=== PATIENT | female | born 1945 | race Caucasian/White ===

== ENCOUNTER 2023-12-17 09:47 | Outpatient (REF) | payer MEDICARE, SELFPAY ==
[2023-12-17 11:21] LABS: TSH reflex Free T4 0.64 uIU/mL (0.32-4.0)
[2023-12-17 11:32] LABS: Anion Gap 15 (12-20); Blood Urea Nitrogen 32 mg/dL (9-16); Carbon Dioxide 24 mmol/L (22-29); Chloride 109 mmol/L (96-108); Estimated Glomerular Filt Rate 41; Glucose Random 117 mg/dL (60-115); Magnesium 1.2 mg/dL (1.6-2.6); Potassium 4.9 mmol/L (3.3-5.1); Sodium 143 mmol/L (135-145)
== END 2023-12-17 09:48 | disposition home or self-care (01) ==
LOC: HO.LAB 09:47
PROVIDERS: PCP Internal Medicine; Visit Provider Internal Medicine
DX: E03.9 Hypothyroidism, unspecified (principal); E83.42 Hypomagnesemia; E87.5 Hyperkalemia; I48.91 Unspecified atrial fibrillation; N17.9 Acute kidney failure, unspecified
CPT/HCPCS: 36415; 80048; 83735; 84443

== ENCOUNTER 2024-01-05 15:24 | Outpatient (REF) | payer MEDICARE, SELFPAY ==
[2024-01-05 18:20] LABS: Anion Gap 15 (12-20); Blood Urea Nitrogen 43 mg/dL (9-16); Calcium 9.6 mg/dL (8.4-10.2); Carbon Dioxide 24 mmol/L (22-29); Chloride 106 mmol/L (96-108); Estimated Glomerular Filt Rate 29; Glucose Random 113 mg/dL (60-115); Magnesium 2.1 mg/dL (1.6-2.6); Potassium 5.5 mmol/L (3.3-5.1); Sodium 139 mmol/L (135-145)
== END 2024-01-05 15:25 | disposition home or self-care (01) ==
LOC: HO.LAB 15:24
PROVIDERS: PCP Internal Medicine; Visit Provider Internal Medicine
DX: E11.9 Type 2 diabetes mellitus without complications (principal); E83.42 Hypomagnesemia; I10 Essential (primary) hypertension; I48.91 Unspecified atrial fibrillation; N18.30 Chronic kidney disease, stage 3 unspecified
CPT/HCPCS: 36415; 80048; 83735

== ENCOUNTER 2024-01-30 08:27 | Outpatient (REF) | payer MEDICARE, SELFPAY ==
[2024-01-30 09:35] LABS: Anion Gap 14 (12-20); Blood Urea Nitrogen 47 mg/dL (9-16); Calcium 9.8 mg/dL (8.4-10.2); Carbon Dioxide 27 mmol/L (22-29); Chloride 102 mmol/L (96-108); Estimated Glomerular Filt Rate 23; Glucose Random 115 mg/dL (60-115); Magnesium 2.4 mg/dL (1.6-2.6); Potassium 4.7 mmol/L (3.3-5.1); Sodium 138 mmol/L (135-145)
--- OUTSIDE RECORDS SUMMARY | 2024-02-01 12:58 | XMS_ITS ---
[facility] Address [address] [facility] [place] [address] Care Team Providers Care Scrap Piler Name Role Phone Tracey Crouch MD Primary Care Provider Unava ilable Black, Stephanie Unavailable [phone] Allergies Allergen (clinical drug ingredient) Drug/Non Drug Allergy documented on EMR Reaction Allergy Type Onset Date Status ampicillin Ampicillin Unknown Drug Allergy Activ e ibuprofen Ibuprofen Unknown Drug Allergy Active REASON FOR VISIT Foot pain, At Risk Footcare, Ingrown Nail Medications Medication SIG (Take, Route, Frequency, Duration) Notes Start Date End Date Status glipiZIDE 5 MG 1 tablet 30 minutes before breakfast Orally Once a day for 30 day(s) Not-Taking metFORMIN HCl 500 MG 1 tablet with a kisha l Orally Once a day for 30 day(s) Not-Taking Ciclopirox Olamine 0.77% external Apply to effected areas twice a day for 30 days 08/09/2019 Not-Taking MSM Not-Taking Meloxicam 15 MG 1 tablet Orally Once a day for 30 day(s) Not-Taking Ciclopirox Olamine 0.77 % 1 application Externally Twice a day for 30 days Not-Taking Extra Depth Orthopedic Shoes (1 Pair) with Customized Heat Molded Multidensity Innersoles (3 Pair) as directed Dx: NIDDM/Polyneuropathy (E11.42), Hammertoe Foot Deformity (M20.41,M20.42), Preulcerative Skin Lesion(s) (L85.1 02/04/2020 Not-Taking Extra Depth Orthopedic Shoes (1 Pair) with Customized Heat Molded Multidensity Innersoles (3 Pair) as directed Dx: NIDDM/Polyneuropathy (E11.42), Hammertoe Foot Deformity (M20.41,M20.42), Preulcerative Skin Lesion(s) (L85.1 03/22/2022 Not-Taking Gabapentin 800 MG 1 tablet Orally Once a day for 30 day(s) Not-Taking Diclofenac Sodium No t-Taking Fish Oil 1200 MG Orally Act jacob Multivitamin Active Calcium + D Active Simvastatin 20 MG 1 tablet in the even ing Orally Once a day for 30 day(s) Active Omeprazole 20 MG 1 capsule 30 minutes before morning meal Orally Once a day for 30 day(s) Active Xarelto Active Magnesium Active Pregabalin 3X DAY Active Lisinopril 10 MG 1 tablet Orally Once a day for 30 day(s) Active Levothyroxine Sodium 150 MCG 1 tablet in the morning on an empty stomach Orally Once a day for 30 day(s) Active Social History Tobacco Use: Social History Observation Description Date Details (start date - stop date) Never Smoker NA - NA Tobacco Use/Smoking Question Answer Notes Are you a: nonsmoker Additional Findings: Tobacco Non-User Current no n-smoker Alcohol Screen Question Answer Notes Did you have a drink contain ing alcohol in the past year? Yes How often did you have a dri nk containing alcohol in the past year? Monthly or less (1 point) Points 1 Interpretation Negative Tobacco use other than smoking: Question Answer Notes Are you an other tobacco user? No Vital Signs Height 5 ft 6 in in 07/04/2023 Weight 225 lbs 07/04/2023 BMI 36.31 kg/m2 07/04/2023 Procedures Procedure Date Ordered Date Performed Result Body Sit e 10720-Nlstumrw Plate 07/04/2023 N/A 31489-CHTE SKIN LESIONS, 2 TO 4 07/04/2023 N/A [id number] DYSTROPHIC NAILS ANY # 07/04/2023 N/A Encounters Encounter Location Date Provider Diagnosis [facility] [address] [place] [address] 07/04/2023 Stephanie Black Pain in right foot M79.671 ; Neuritis of right foot G57.91 ; Type 2 diabetes mellitus with diabetic polyneuropathy E11.42 ; Hypertrophy of bone of left foot M89.372 ; Pain in left foot M79.672 ; Osteoarthritis of left ankle and foot M19.072 and Ingrown nail L60.0 Assessments Encounter Date Diagnosis (ICD Code) Assessment Notes Treatment Notes Treatment Clinical Notes Section Notes 07/04/2023 Pain in right foot (ICD-10 - M79.671) 07/04/2023 Neuritis of right foot (ICD-10 - G57.91) 07/04/2023 Type 2 diabetes mellitus with diabetic polyneuropathy (ICD-10 - E11.42) 07/04/2023 Hypertrophy of bone of left foot (ICD-10 - M89.372) 07/04/2023 Pain in left foot (ICD-10 - M79.672) 07/04/2023 Osteoarthritis of left ankle and foot (ICD-10 - M19.072) 07/04/2023 Ingrown nail (ICD-10 - L60.0) Plan Of Treatment Pending Test Test Name Order Date 27080-Xevhdrka Plate 07/04/2023 45664-EVBT SKIN LESIONS, 2 TO 4 07/04/19 24 R0039-[id number] DYSTROPHIC NAILS ANY # Next Appt Details Follow Up: 2 Weeks,prn, Reas on: Provider Name:Stephanie Chapin , 04/19/2024 08:15:00 AM, [address] [facility], [place], [address], Procedure Notes * Category Sub-Category Detail Notes Nail Avulsion Procedure A fine sterile e levator was placed between the eponychium, nail fold, and nail plate to separate the structures. A sterile nail splitter, and/or sterile 316 blade, was then used to longitudinally section the nail along its entire length through the eponychium to the area under the nail fold. The offending portion of nail was from the nail bed with a rolling action and then removed with a hemostat. No underlying bone was identified. There was minimal bleeding as hemostasis was achieved through the temporary use of either a digital tourniquet or the aforementioned local with epinephrine. A bacitracin sterile dressing was applied. Local wound aftercare instructions were discussed and dispensed. The patient was informed of both conservative and future surgical procedures to prevent recurrence. Tylenol or Motrin was recommended for pain or discomfort (03152) , Pt DEFERS matricectomy Anesthesia was deferred - NEURO KARL: patient has medically documented neuropathic condition affecting sensation Location Lateral nail border , T5 Keratoma Treatment Parring or Cutting o f Benign Hyperkeratotic Lesion(s) 83421 (2-4 Lesions) - The Benign hyperkeratotic lesions, as described above were pared, and/or cut utilizing a sterile #15 blade, tissue nippers, and/or dremel Nail Reduction Nail Reduction Trimming of dyst rophic nails performed to reduce/remove overall nail length and girth, by manual and electrical means with use of a nail nipper and/or dremel, to more viable healthy nail plate or bed tissue 6-10 (G0127) Progress Notes * Krystal CHASE ADOB: [birth year] (78 yo F)Acc No.[id number]:07/04/2023 Progress Note Patient:?Krystal Chase A Provider:?Stephanie Chapin DPM :1945???Age:78 Y???Sex:Female D ate:07/04/2023 Address:[address], [facility], [facility] Pcp:Tracey Crouch MD Subjective: * Chief Complaints: * ???Foot painAt Risk Footcare Ingrown Nail * HPI: ???Foot Pain:?Nature:?burning , radiating , shooting , tingling.?Location:?, B/L.?Duration:?several months.?Onset:?unknown.?Course:?improved , at 80 %.?Aggrevated:?any pressure , Worse at night when in bed.?Treatments:?rest/alter normal daily activity , medication ( biofreeze ).?At Risk footcare:?Pt States Last PCP Visit:?Date?06/20/2023 * ROS:?General/Constitutional:?Nausea?denies.?Vomiting?denies.?Hunger Thirst?denies.?Loss appetite?denies.?Chills?denies.?Fatigue?denies.?Fever?denies.?Night Sweats?denies.?Unexplained weight loss?denies.?Unexplained weight gain?denies.?HEENTM:?Dentures?denies.?Dizziness?denies.?Glasses/contacts?admits.?Retinopathy?de nies.?Blurred/double vision?denies.?TMJ?denies.?Discharge/drainage?denies.?Implants?denies.?Sore throat?denies.?Dental implants?denies.?Hard of hearing ?denies.?Difficulty chewing/swallowing/speaking?denies.?Nose bleeds?denies.?Sore mouth?denies.?Respiratory:?On Oxygen?denies.?Pneumonia/pleurisy?denies.?Bronchitis?denies.?Emphysema?denies.?C oughing?denies.?Cough blood?denies.?Shortness of breath?denies.?Wheezing?denies.?Cardiovascular:?Pacemaker?denies.?MVP?denies.?WPW?denies.?CHF?denies.?Heart attack?denies.?Septal defect?denies.?Rapid beat?denies.?Chest pain ?denies.?Atrial Fib.?denies.?Murmur/Palpitations?denies.?Gastrointestinal:?Hemorrhoids?admits.?Stomach/Abdominal pain?denies.?Dark blood stool?denies.?Irritable bowel ?denies.?Constipation?denies.?Diarrhea?denies.?Hematology:?Swelling?denies.?Clots?denies.?Varicose Veins?denies.?Bruising?denies.?Bleeding problem?denies.?Genitourinary:?Blood urine?denies.?Frequent/Painfu/urination/bladder control?denies.?Kidney stones?denies.?Infection (UTI)?denies.?Nephropathy?denies.?sex trans dis (STD)?denies.?Prostate?denies.?Musculoskeletal:?Hammertoes?denies.?Bunions?denies.?Back Pain?admits.?Muscle Cramps/ Resting?denies.?Muscle cramps / walking?denies.?Generalized aches and pains?admits.?Weakness?denies.?Integ.:?Ortega?denies.?Scars?admits.?Corns/calluses?admits.?Ingrown nails?denies.?Painful nails?denies.?Open Sores?denies.?Rashes?denies.?Neurologic:?Difficulty sleeping?denies.?Brain disorder?denies.?Numbness?denies.?Balance trouble?denies.?Confusion?denies.?Fainting/blackouts?denies.?Tingling?denies.?Tr emors?denies.? * Medical History:? * Surgical History:?hysterecto my 08/14/13right knee replacement 09/16/16left knee replacement 11/18/16prolapse bladder * Hospitalization/Major Diagno stic Procedure:?Denies Past Hospitalization * Family History:?Mother: dece ased, foot problems, diagnosed with Other specified conditions influencing health status.?Father: .?Spouse: diagnosed with Unspecified heart disease.? * Social History:?Tobacco Use:?Tobacco Use/Smoking?Are you a:?nonsmoker ?Additional Findings: Tobacco Non-User?Current non-smoker ?Tobacco use other than smoking?Are you an other tobacco user??No ???Drugs/Alcohol:?Drugs?Have you used drugs other than those for medical reasons in the past 12 months??No ?Alcohol Screen?Did you have a drink containing alcohol in the past year??Yes ?How often did you have a drink containing alcohol in the past year??Monthly or less (1 point) ?Points?1 ?Interpretation?Negative ???Miscellaneous:?Caffeine: yes, frequency:, 2-3 cups per day. ?Children: yes. ?no Exercise. ?Marital status: . 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 * Medications:?TakingMagnesium Pregabalin , Notes: 3X DAYXarelto Lisinopril 10 MG Tablet 1 tablet Orally Once a dayLevothyroxine Sodium 150 MCG Tablet 1 tablet in the morning on an empty stomach Orally Once a daySimvastatin 20 MG Tablet 1 tablet in the evening Orally Once a dayOmeprazole 20 MG Capsule Delayed Release 1 capsule 30 minutes before morning meal Orally Once a dayMultivitamin Calcium + D Fish Oil 1200 MG Capsule Orally Taking Magnesium Taking Pregabalin , Notes: 3X DAYTaking Xarelto Taking Lisinopril 10 MG Tablet 1 tablet Orally Once a dayTaking Levothyroxine Sodium 150 MCG Tablet 1 tablet in the morning on an empty stomach Orally Once a dayTaking Simvastatin 20 MG Tablet 1 tablet in the evening Orally Once a dayTaking Omeprazole 20 MG Capsule Delayed Release 1 capsule 30 minutes before morning meal Orally Once a dayTaking Multivitamin Taking Calcium + D Taking Fish Oil 1200 MG Capsule Orally Not-Taking/PRNCiclopirox Olamine 0.77 % Cream 1 application Externally Twice a dayExtra Depth Orthopedic Shoes (1 Pair) with Customized Heat Molded Multidensity Innersoles (3 Pair) as directed Dx: NIDDM/Polyneuropathy (E11.42), Hammertoe Foot Deformity (M20.41,M20.42), Preulcerative Skin Lesion(s) (L85.1Extra Depth Orthopedic Shoes (1 Pair) with Customized Heat Molded Multidensity Innersoles (3 Pair) as directed Dx: NIDDM/Polyneuropathy (E11.42), Hammertoe Foot Deformity (M20.41,M20.42), Preulcerative Skin Lesion(s) (L85.1Gabapentin 800 MG Tablet 1 tablet Orally Once a dayDiclofenac Sodium Meloxicam 15 MG Tablet 1 tablet Orally Once a dayCiclopirox Olamine 0.77% Cream external Apply to effected areas twice a dayMSM glipiZIDE 5 MG Tablet 1 tablet 30 minutes before breakfast Orally Once a daymetFORMIN HCl 500 MG Tablet 1 tablet with a meal Orally Once a dayMedication List reviewed and reconciled with the patientNot-Taking/PRN Ciclopirox Olamine 0.77 % Cream 1 application Externally Twice a dayNot-Taking/PRN Extra Depth Orthopedic Shoes (1 Pair) with Customized Heat Molded Multidensity Innersoles (3 Pair) as directed Dx: NIDDM/Polyneuropathy (E11.42), Hammertoe Foot Deformity (M20.41,M20.42), Preulcerative Skin Lesion(s) (L85.1Not-Taking/PRN Extra Depth Orthopedic Shoes (1 Pair) with Customized Heat Molded Multidensity Innersoles (3 Pair) as directed Dx: NIDDM/Polyneuropathy (E11.42), Hammertoe Foot Deformity (M20.41,M20.42), Preulcerative Skin Lesion(s) (L85.1Not-Taking/PRN Gabapentin 800 MG Tablet 1 tablet Orally Once a dayNot-Taking/PRN Diclofenac Sodium Not-Taking/PRN Meloxicam 15 MG Tablet 1 tablet Orally Once a dayNot-Taking/PRN Ciclopirox Olamine 0.77% Cream external Apply to effected areas twice a dayNot-Taking/PRN MSM Not-Taking/PRN glipiZIDE 5 MG Tablet 1 tablet 30 minutes before breakfast Orally Once a dayNot-Taking/PRN metFORMIN HCl 500 MG Tablet 1 tablet with a meal Orally Once a dayMedication List reviewed and reconciled with the patient * Allergies:?AmpicillinIbuprof enyes[Allergies Verified] Objective: * Vitals:?Ht: 5 ft 6 in, Wt: 2 25, BMI: 36.31, Shoe size: 12, BS: 107, Ht-cm: 167.64 cm, Wt-k.06 kg. * ???Past Orders: ???Lab:HEMOGLOBIN A1C (GLYCO HEMOGLOBIN) (Order Date - 12/15/2022) (Collection Date - 12/15/2022) ? Value Reference Range ?HEMOGLOBIN A1C (HH) 6.3 * Examination: ???Neurological: ?SENSORY:?exam demonstrates. reduced vibration lower extremity, reduced sharp/dull pin prick discrimination , 5.07 monofilament test performed at plantar aspects of 5 varied sites per foot shows sensation absent, B/L, Pt relates decreased anesthesia, burning , tingling, burning, anesthesia , especially in the evening b/l at 80 percent less.?TINEL'S COMPRESSION:?Positive , Medial dorsal cutaneous nerve distribution , Intermediate dorsal cutaneous nerve distribution , Right.?Ophthalmology Referral: ?DIABETES EYE EXAM?Dermatologic: ?SKIN FINDINGS:?Skin exam reveals keratotic lesion(s) located at, SUB MTH (s), 5, Right Heel(s), B/L,?.?Ingrown Nail: ?INSPECTION:?Reveals nail incurvation, pain on palpation, groove hypertrophy , groove ischemia , Lateral nail border , T5.?Vascular: ?DP PULSES:?2/4, B/L.?PT PULSES:?2/4, B/L ,.?Nails: ?NAILS are:?Elongated, overgrown, dystrophic, , 1-5 Left foot , 2-5 Right foot.?Orthopedic: ?FOOT MORPHOLOGY:?exostosis , dorsal , midfoot left with POP , approximately 80_% LESS.? Assessment: * Assessment: 1.?Pain in right foot - M79. 671?2.?Neuritis of right foot - G57.91 (Primary), Acute problem, Stable (1=3)?3.?Type 2 diabetes mellitus with diabetic polyneuropathy - E11.42 4.?Hypertrophy of bone of left foot - M89.372?5.?Pain in left foot - M79.672?6.?Osteoarthritis of left ankle and foot - M19.072?7.?Ingrown nail - L60.0? Plan: * Treatment: 2.?Ingrown nail?Procedure: 67915-Gjflcgae Plate * Procedures:?Keratoma Treatment:?Parring or Cutting of Benign Hyperkeratotic Lesion(s)?47946 (2-4 Lesions) - The Benign hyperkeratotic lesions, as described above were pared, and/or cut utilizing a sterile #15 blade, tissue nippers, and/or dremel.?Nail Avulsion:?Location?Lateral nail border , T5.?Anesthesia?was deferred - NEUROPATHY: patient has medically documented neuropathic condition affecting sensation.?Procedure?A fine sterile elevator was placed between the eponychium, nail fold, and nail plate to separate the structures. A sterile nail splitter, and/or sterile 316 blade, was then used to longitudinally section the nail along its entire length through the eponychium to the area under the nail fold. The offending portion of nail was from the nail bed with a rolling action and then removed with a hemostat. No underlying bone was identified. There was minimal bleeding as hemostasis was achieved through the temporary use of either a digital tourniquet or the aforementioned local with epinephrine. A bacitracin sterile dressing was applied. Local wound aftercare instructions were discussed and dispensed. The patient was informed of both conservative and future surgical procedures to prevent recurrence. Tylenol or Motrin was recommended for pain or discomfort (72981) , Pt DEFERS matricectomy.?Nail Reduction:?Nail Reduction?Trimming of dystrophic nails performed to reduce/remove overall nail length and girth, by manual and electrical means with use of a nail nipper and/or dremel, to more viable healthy nail plate or bed tissue 6-10 (G0127).? * Procedure Codes:?39734 Avuls ion Plate, Modifiers: T5 G0127 TRIMMING DYSTROPHIC NAILS ANY #, Modifiers: XS 68104 TRIM SKIN LESIONS, 2 TO 4, Modifiers: XS * Preventive Medicine:? ??Counseling:?Discussion:?-13: Office or other outpatient visit for the evaluation and management of an established patient, which required a medically appropriate history and/or examination and LOW level of DECISION MAKING for: 1 STABLE ACUTE UNCOMPLICATED PROBLEM, 2 OR MORE MINOR PROBLEMS, OR 1 STABLE CHRONIC PROBLEM, THAT POSE(S) A LOW RISK FOR MORBIDITY/MORTALITY. The visit on the day of the encounter encompassed interpreting the data and educating the patient as to the nature of their condition, treatment options available according to their individual PMH, meds, allergies, and overall health/living conditions, as well as any potential risks or complications that may occur from a failure to adhere to, and participate in, the recommended course of therapy. The discussion included a complete verbal, and/or written explanation of the examination results, any x-rays taken, the proposed diagnosis, and outline of the treatment plan. A schedule for future care needs was also explained. The patient verbalized an understanding of the instructions at this time and agreed to be an active participant in their treatment. If the patient should think of any questions or concerns after the visit, I have encouraged the patient to call the office.?Neuritis/Neuropathy:?Discussed other tx options for the patients condition, Discussed Neurontin, Recommened Alpha Lipoic Acid 600mg Daily, nPty defers on any oral medication. given recent successful results to treatment, the patient wishes to continue with the present plan for their condition.? * Follow Up:?2 Weeks,prn * Images: * Sign off status: Completed true * Provider:?Stephanie Chaipn DPM Date:?2023 Generated for Farhan gallego/Jacki/Jake on:?02/01/2024 12:58 PM EST History and Physical Notes * HPI (History of Present Illness) Category Sub-Category Detail Notes Category Not es At Risk footcare Pt States Last PCP Visit: Date: 4 Foot Pain Nature: burning , radiat ing , shooting , tingling Location: , B/L Duration: several months Onset: unknown Course: improved , at 80 % Aggravated: any pressure , Worse at night when in bed Treatments: rest/alter normal da seun activity , medication ( biofreeze ) Examination Category Sub-Category Detail Notes Category Not es Ingrown Nail INSPECTION: Reveals nail inc urvation, pain on palpation, groove hypertrophy , groove ischemia , Lateral nail border , T5 Neurological SENSORY: exam demonstrate s. reduced vibration lower extremity, reduced sharp/dull pin prick discrimination , 5.07 monofilament test performed at plantar aspects of 5 varied sites per foot shows sensation absent, B/L, Pt relates decreased anesthesia, burning , tingling, burning, anesthesia , especially in the evening b/l at 80 percent less BABINSKI REFLEX: TINEL'S COMPRESSION: Positive , Medial d orsal cutaneous nerve distribution , Intermediate dorsal cutaneous nerve distribution , Right DEEP TENDON REFLEXES: Dermatologic SKIN FINDINGS: Skin exam reveal s keratotic lesion(s) located at, SUB MTH (s), 5, Right Heel(s), B/L, Orthopedic FOOT MORPHOLOGY: exostosis , gabriel eros , midfoot left with POP , approximately 80_% LESS Ophthalmology Referral DIABETES EYE EXAM Diabetic Retinopa thy Screening:: Yes Findings of Diabetic Eye Exam:: no retin opathy Vascular DP PULSES(B): 2/4, B/L PT PULSES(B): 2/4, B/L , Nails NAILS are: Elongated, overg rown, dystrophic, , 1-5 Left foot , 2-5 Right foot
--- OUTSIDE RECORDS SUMMARY | 2024-02-01 12:58 | XMS_ITS ---
[facility] Address [address] [place] [address] Care Team Providers Care Interior Design Director Name Role Phone Tracey Crouch MD Primary Care Provider Unava ilable Black, Stephanie Unavailable [phone] Allergies Allergen (clinical drug ingredient) Drug/Non Drug Allergy documented on EMR Reaction Allergy Type Onset Date Status ampicillin Ampicillin Unknown Drug Allergy Activ e ibuprofen Ibuprofen Unknown Drug Allergy Active REASON FOR VISIT Foot pain, At Risk Footcare, Toe Irritation Medications Medication SIG (Take, Route, Frequency, Duration) Notes Start Date End Date Status Extra Depth Orthopedic Shoes (1 Pair) with Customized Heat Molded Multidensity Innersoles (3 Pair) as directed Dx: NIDDM/Polyneuropathy (E11.42), Hammertoe Foot Deformity (M20.41,M20.42), Preulcerative Skin Lesion(s) (L85.1 03/22/2022 Not-Taking Gabapentin 800 MG 1 tablet Orally Once a day for 30 day(s) Not-Taking Diclofenac Sodium No t-Taking Meloxicam 15 MG 1 tablet Orally Once a day for 30 day(s) Not-Taking Extra Depth Orthopedic Shoes (1 Pair) with Customized Heat Molded Multidensity Innersoles (3 Pair) as directed Dx: NIDDM/Polyneuropathy (E11.42), Hammertoe Foot Deformity (M20.41,M20.42), Preulcerative Skin Lesion(s) (L85.1 02/04/2020 Not-Taking Extra Depth Orthopedic Shoes (1 Pair) with Customized Heat Molded Multidensity Innersoles (3 Pair) as directed Dx: NIDDM/Polyneuropathy (E11.42), Hammertoe Foot Deformity (M20.41,M20.42), Preulcerative Skin Lesion(s) (L85.1 10/03/2023 Active Simvastatin 20 MG 1 tablet in the even ing Orally Once a day for 30 day(s) Not-Taking Multivitamin Not-Nacho ing Fish Oil 1200 MG Orally Not -Taking Ciclopirox Olamine 0.77 % 1 application Externally Twice a day for 30 days Not-Taking Losartan Potassium 25 MG as directed Ora l for 30 days Active Magnesium Not-Taking Levothyroxine Sodium 137 MCG 1 tablet in the morning on an empty stomach Orally Once a day for 30 days Active Omeprazole 20 MG 1 capsule 30 minutes before morning meal Orally Once a day for 30 day(s) Active Calcium + D Active Lisinopril 10 MG 1 tablet Orally Once a day for 30 day(s) Active metFORMIN HCl 500 MG 1 tablet with a kisha l Orally Once a day for 30 day(s) Not-Taking Pregabalin 3X DAY Active Xarelto Active glipiZIDE 5 MG 1 tablet 30 minutes before breakfast Orally Once a day for 30 day(s) Not-Taking Ciclopirox Olamine 0.77% external Apply to effected areas twice a day for 30 days 08/09/2019 Not-Taking MSM Not-Taking Social History Tobacco Use: Social History Observation [...] Signs Height 5 ft 6 in in 10/03/2023 Weight 217 lbs 10/03/2023 BMI 35.02 kg/m2 10/03/2023 Procedures Procedure Date Ordered Date Performed Result Body Sit e 16329-FUVE SKIN LESIONS, 2 TO 4 10/03/2023 N/A [id number] DYSTROPHIC NAILS ANY # 10/03/2023 N/A Encounters Encounter Location Date Provider [facility] [address] [place] [address] 10/03/2023 Stephanie Black Neuritis of right fo ot G57.91 ; Other hammer toe(s) (acquired), right foot M20.41 ; Pain in right foot M79.671 ; Hypertrophy of bone of left foot M89.372 ; Pain in left foot M79.672 ; Osteoarthritis of left ankle and foot M19.072 ; Other hammer toe(s) (acquired), left foot M20.42 and Type 2 diabetes mellitus with diabetic polyneuropathy E11.42 Assessments Encounter Date Diagnosis (ICD Code) Assessment Notes Treatment Notes Treatment Clinical Notes Section Notes 10/03/2023 Neuritis of right foot (ICD-10 - G57.91) 10/03/2023 Other hammer toe(s) (acquired), right foot (ICD-10 - M20.41) Patient Educated with: DIABETIC FOOT CARE INSTRUCTIONS. pdf (DIABETIC FOOT CARE INSTRUCTIONS. pdf) 10/03/2023 Pain in right foot (ICD-10 - M79.671) 10/03/2023 Hypertrophy of bone of left foot (ICD-10 - M89.372) 10/03/2023 Pain in left foot (ICD-10 - M79.672) 10/03/2023 Osteoarthritis of left ankle and foot (ICD-10 - M19.072) 10/03/2023 Other hammer toe(s) (acquired), left foot (ICD-10 - M20.42) 10/03/2023 Type 2 diabetes mellitus with diabetic polyneuropathy (ICD-10 - E11.42) Plan Of Treatment Medication Medication Name Sig Start Date Stop Date Notes Extra Depth Orthopedic Shoes (1 Pair) with Customized Heat Molded Multidensity Innersoles (3 Pair) as directed Dx: NIDDM/Polyneuropathy (E11.42), Hammertoe Foot Deformity (M20.41,M20.42), Preulcerative Skin Lesion(s) (L85.1 10/03/2023 Treatment Notes Assessment Notes Other hammer toe(s) (acquired), right fo ot Patient Educated with: DIABETIC FOOT CARE INSTRUCTIONS.pdf (DIABETIC FOOT CARE INSTRUCTIONS.pdf) Pending Test Test Name Order Date 79857-XVVB SKIN LESIONS, 2 TO 4 10/03/19 24 [id number] DYSTROPHIC NAILS ANY # Next Appt Details Follow Up: 3 Months, Reason: Provider Name:Stephanie Chapin , 04/19/2024 08:15:00 AM, [address] [place], [address], Procedure Notes * Category Sub-Category Detail Notes Keratoma Treatment Parring or Cutting o f Benign Hyperkeratotic Lesion(s) 71262 (2-4 Lesions) - The Benign hyperkeratotic lesions, [...] Krystal CHASE ADOB: [birth year] (78 yo F)Acc No.[id number]:10/03/2023 Progress Note Patient:?Krystal Chase Provider:?Stephanie Chapin DPM :1945???Age:78 Y???Sex:Female D ate:10/03/2023 Address[address] [facility] Pcp:Tracey Crouch MD Subjective: * Chief Complaints: * ???Foot painAt Risk Footcare Toe Irritation * HPI: ???Foot Pain:?Nature:?burning , radiating , shooting , tingling.?Location:?, B/L.?Duration:?several months.?Onset:?unknown.?Course:?unresolved.?Aggravated:?any pressure , Worse at night when in bed.?Treatments:?rest/alter normal daily activity , medication ( biofreeze ).?At Risk footcare:?Pt States Last PCP Visit:?Date?10/01/2023 ???Toe pain:?Location:?B/L feet.?Duration:?several years.?Course:?worse.?Aggravated by:?shoes, any pressure.?Treatments:?change in shoes.? * ROS:?General/Constitutional:?Nausea?denies.?Vomiting?denies.?Hunger Thirst?denies.?Loss appetite?denies.?Chills?denies.?Fatigue?denies.?Fever?denies.?Night Sweats?denies.?Unexplained weight loss?denies.?Unexplained [...] year??Monthly or less (1 point) ?Points?1 ?Interpretation?Negative ???Miscellaneous:?no Caffeine. ?Children: yes. ?no Exercise. ?Marital status: . 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 * Medications:?TakingPregabali n , Notes: 3X DAYXarelto Lisinopril 10 MG Tablet 1 tablet Orally Once a dayLevothyroxine Sodium 137 MCG Tablet 1 tablet in the morning on an empty stomach Orally Once a dayOmeprazole 20 MG Capsule Delayed Release 1 capsule 30 minutes before morning meal Orally Once a dayCalcium + D Losartan Potassium 25 MG Tablet as directed Oral Taking Pregabalin , Notes: 3X DAYTaking Xarelto Taking Lisinopril 10 MG Tablet 1 tablet Orally Once a dayTaking Levothyroxine Sodium 137 MCG Tablet 1 tablet in the morning on an empty stomach Orally Once a dayTaking Omeprazole 20 MG Capsule Delayed Release 1 capsule 30 minutes before morning meal Orally Once a dayTaking Calcium + D Taking Losartan Potassium 25 MG Tablet as directed Oral Not-Taking/PRNMagnesium Simvastatin 20 MG Tablet 1 tablet in the evening Orally Once a dayMultivitamin Fish Oil 1200 MG Capsule Orally Ciclopirox Olamine 0.77 % Cream 1 application [...] List reviewed and reconciled with the patientNot-Taking/PRN Magnesium Not-Taking/PRN Simvastatin 20 MG Tablet 1 tablet in the evening Orally Once a dayNot-Taking/PRN Multivitamin Not- Taking/PRN Fish Oil 1200 MG Capsule Orally Not-Taking/PRN Ciclopirox Olamine 0.77 % Cream 1 application [...] Vitals:?Ht: 5 ft 6 in, Wt: 2 17, BMI: 35.02, Shoe size: 12, BS: 118, Ht-cm: 167.64 cm, Wt-k.43 kg. * ???Past Orders: ???Lab:HEMOGLOBIN A1C (GLYCO HEMOGLOBIN) (Order Date - 10/01/2023) (Collection Date - 10/01/2023) ? Value Reference Range ?HEMOGLOBIN A1C (HH) 5.7 * Examination: ???Ophthalmology Referral: ?DIABETES EYE EXAM?Neurological: ?SENSORY:?exam demonstrates. reduced vibration lower extremity, reduced sharp/dull pin prick discrimination , 5.07 monofilament test performed at plantar aspects of 5 varied sites per foot shows sensation absent, B/L, Pt relates decreased anesthesia, burning , tingling, burning, anesthesia , especially in the evening b/l at 80 percent less.?TINEL'S COMPRESSION:?Positive , Medial dorsal cutaneous nerve distribution , Intermediate dorsal cutaneous nerve distribution , Right.?Dermatologic: ?SKIN FINDINGS:?Skin exam reveals keratotic lesion(s) located at, SUB MTH (s), 5, Right Heel(s), B/L,?.?Vascular: ?DP PULSES:?2/4, B/L.?PT PULSES:?2/4, B/L ,.?Nails: ?NAILS are:?Elongated, overgrown, dystrophic, , 1-5 B/L.?Orthopedic: ?FOOT MORPHOLOGY:?exostosis , dorsal , midfoot left with POP , approximately 80_% LESS.?DIGITAL DEFORMITIES:?Digital contracture, PIPJ, 2-5 B/L, incompl-reducible to push-up test, no over, nor underlapping, with evidence of shoe producing skin irritation.?FOOTWEAR:?worn, non-supportive, shoe gear properties exacerbate patient's foot/toe deformity.?General Examination: ?FOOT EXAM:?Footwear Evaluation? Assessment: * Assessment: 1.?Other hammer toe(s) (acqu ired), right foot - M20.41 (Primary), Chronic problem, Worse (4),Rx Management (4)?2.?Neuritis of right foot - G57.91, Acute problem, Stable (1=3)?3. Pain in right foot - M79.671?4.?Hypertrophy of bone of left foot - M89.372?5.?Pain in left foot - M79.672?6.?Osteoarthritis of left ankle and foot - M19.072?7. Other hammer toe(s) (acquired), left foot - M20.42, Chronic problem, Worse (4),Rx Management (4)?8.?Type 2 diabetes mellitus with diabetic polyneuropathy - E11.42? Plan: * Treatment: 2.?Type 2 diabetes mellitus with diabetic polyneuropathy?Procedure: 94190-VZMC SKIN LESIONS, 2 TO 4 ?Procedure: U1416-ISWCCLEA DYSTROPHIC NAILS ANY # * Procedures:?Keratoma Treatment:?Parring or Cutting of Benign Hyperkeratotic Lesion(s)?92552 (2-4 Lesions) - The Benign hyperkeratotic lesions, as described above were pared, and/or cut utilizing a sterile #15 blade, tissue nippers, and/or dremel.?Nail Reduction:?Nail Reduction?Trimming of dystrophic nails performed to reduce/remove overall nail length and girth, by manual and electrical means with use of a nail nipper and/or dremel, to more viable healthy nail plate or bed tissue 6-10 (G0127).? * Procedure Codes:?G0127 DION ING DYSTROPHIC NAILS ANY #, Modifiers: XS 20471 TRIM SKIN LESIONS, 2 TO 4, Modifiers: XS * Preventive Medicine:? ??Counseling:?Discussion:?-14: Office or other outpatient visit for the evaluation and management of an established patient, which required a medically appropriate history and/or examination and MODERATE level of DECISION MAKING for: 1 OR MORE CHRONIC PROBLEM(S) THATS WORSENING, 2 STABLE CHRONIC PROBLEMS, A NEWLY DIAGNOSED PROBLEM WITH UNCERTAIN PROGNOSIS, AN ACUTE COMPLICATED INJURY WITH MULTIPLE TREATMENT OPTIONS, OR AN ACUTE PROBLEM WITH ACCOMPANYING SYSTEMIC SYMPTOMS, THAT POSE(S) A MODERATE RISK OF MORBIDITY. THIS CONDITION MAY ALSO INCLUDE RX DRUG MANAGEMENT, OR A DECISON FOR MINOR SURGERY. The visit on the day of the [...] have encouraged the patient to call the office.?Arthritis:?Discussed other tx options for the patients condition,, Rx Custom Topical pain control compound combination therapy was recomm. however The patient wishes to continue with the present treatment plan for their condition.?Digital Treatment:?HT- I explained to the patient the possible etiologies of Hammertoes, including genetics/foot type/shoegear/activity level/exercise routine and the risks/benefits of all the different treatment options for their pain including: No treatment at all, Rest, Ice, New/supportive/wider/deeper Shoegear, Digital Padding/Strapping/Taping/Bracing/Gel protective sleeves, Foot/Ankle AFO Bracing, Stretching exercises, Deep Tissue Massage, Arch support/shoe inserts with splay metatarsal padding, and Custom orthoses. I insisted that any digital devices be removed daily and not worn overnight for safety. The patient is to carefully examine the toes daily for any skin irritation while using any splinting or padding device. The advantages and disadvantages of each option were discussed and the patients questions re: shoegear, padding, custom vs prefabricated inserts, activity level, and consistency in home treatment regimens for optimal success were answered to their verbally confirmed satisfaction, Rx: Extra Depth Diabetic Shoes with 3 pair of custom heat-molded inserts.? * Follow Up:?3 Months * Images: * Sign off status: Completed true * Provider:?Stephanie Chapin DPM Date:?2023 Generated for Farhan gallego/Jacki/Jake on:?02/01/2024 12:58 PM EST History and Physical Notes * HPI (History of Present Illness) Category Sub-Category Detail Notes Category Not es Toe pain Location: B/L feet Duration: several years Course: worse Aggravated by: shoes, any pressure Treatments: change in shoes At Risk footcare Pt States Last PCP Visit: Date: 4 Foot Pain Nature: burning , radiat ing , shooting , tingling Location: , B/L Duration: several months Onset: unknown Course: unresolved Aggravated: any pressure , Worse at night when in bed Treatments: rest/alter normal da seun activity , medication ( biofreeze ) Examination Category Sub-Category Detail Notes Category Not es Neurological SENSORY: exam demonstrate s. reduced vibration [...] left with POP , approximately 80_% LESS FOOTWEAR: worn, non-supportive , shoe gear properties exacerbate patient's foot/toe deformity DIGITAL DEFORMITIES: Digital contracture , PIPJ, 2-5 B/L, incompl-reducible to push-up test, no over, nor underlapping, with evidence of shoe producing skin irritation General Examination FOOT EXAM: Lower Extrem ity Neurological Exam performed:: Yes Footwear Evaluation Footwear Evaluation performe d:: Yes Ophthalmology Referral DIABETES EYE EXAM Diabetic Retinopa thy Screening:: Yes Findings of Diabetic Eye Exam:: no retin opathy Vascular DP PULSES(B): 2/4, B/L PT PULSES(B): 2/4, B/L , Nails NAILS are: Elongated, overgrown, dystro phic, , 1-5 B/L
--- OUTSIDE RECORDS SUMMARY | 2024-02-01 12:58 | XMS_ITS | Data Portability ---
Author Organization [facility], [facility] Address [address] [place] [address] Care Team Providers Care Liquor Merchant Name Role Phone CROOKS KELLEE Primary Care Provider Assessment No assessment recorded. Plan of Treatment Reminders Order Date Submit Date Provider Last Modified By Organization Details Last Modified Time Details Appointments None recorded. Lab None recorded. Referral None recorded. Procedures None recorded. Surgeries None recorded. Imaging XR, shoulder, 2 or more view - ROOM 202, B/ Shoulder Pain 2023 024 [email or web address] [facility], [address] [facility] [address], [place], [address], 4 14:10:02 Medication Orders None recorded. Patient TargetsNo targets recorded. Patient InstructionsNo instructions recorded. Reason for Referral None Reported. Results Created Date Observation Date Name Description Value Unit Range Abnormal Flag Note LastModifiedBy Organization Detail LastModifiedTime 10/21/19 24 08/01/2019 imagi ng/di agnos tic resul t No observ ation record ed. [email or web address] Not Available 09/23 22:03:03 10/21/19 24 07/28/2019 imagi ng/di agnos tic resul t No observ ation record ed. [email or web address] Not Available 09/23 22:03:06 10/21/19 24 05/05/2021 imagi ng/di agnos tic resul t No observ ation record ed. [email or web address] Not Available 09/23 22:03:12 Result Notes None recorded. Procedures Surgical History Date Name Laterality Status Provider Name and Address Organization Details Recorded Time 4 Sports Shoulder 4&1 completed River Stover PA-C [address], [place], [address], [facility] 11/17/2023 08:39:11 4 Shoulder Kenalog 2cc Injection, Bilateral completed River Stover PA-C [address], [place], [address], [facility] 06/01/2023 13:57:24 4 Wrist Joint Kenalog Injection, L/R completed River Stover PA-C [address], [place], [address], [facility] 06/01/2023 13:58:32 Imaging Results Imaging Date Name Status LastModified by Organiz ation Details LastModified Time 08/01/2019 imaging/diag nostic result completed Information not available 10/21/2023 22:03:03 07/28/2019 imaging/diag nostic result completed Information not available 10/21/2023 22:03:06 05/05/2021 imaging/diag nostic result completed Information not available 10/21/2023 22:03:12 Procedure Notes None recorded. Medical Equipment None Reported. Allergies Allergen ID Allergen Name Allergen Category Reaction Reaction Severity Criticality Documentation Date Start Date Code Code System Note Provider Name and Address Organization Details Recorded Time 484561 ibuprofen medicatio n Not available Not available Not available 04/25/20232006 5640 RxNorm Aller gyRea ction : 'Skin React ion'; Not Available [facility] 4 16:24:39 079418 ampicilli n trihydrat e medicatio n Not available Not available Not available 04/25/20232013 10935 5 RxNorm Not Available [facility] 4 16:24:39 Medications Name Sig Start Date Stop Date Status Note LastModified by Organization Details LastModified Time losartan 50 mg tablet TAKE 1 TABLET BY MOUTH EVERYDAY AT BEDTIME active Not Available Not Available No t Available furosemide 40 mg tablet TAKE 1 TABLET BY MOUTH EVERY DAY. REFILL PER YOUR PRIMARY CARE DOCTOR OR CARDIOLOG IST active Not Available Not Available No t Available atorvastati n 20 mg tablet active Not Available Not Available Not Available amlodipine 5 mg tablet TAKE 1 TABLET BY MOUTH EVERYDAY AT BEDTIME active Not Available Not Available No t Available SPS (with sorbitol) 15 gram-20 gram/60 mL oral suspension TAKE 60ML BY MOUTH 2 TIMES A DAY X 2 DAYS active Not Available Not Available No t Available simvastatin 40 mg tablet active Not Available Not Available Not Available amlodipine 10 mg tablet TAKE 1 TABLET BY MOUTH EVERYDAY AT BEDTIME active Not Available Not Available No t Available lisinopril 10 mg tablet active Not Available Not Available Not Available losartan 25 mg tablet active Not Available Not Available No t Available omeprazole 20 mg capsule,del ayed release active Not Available Not Available Not Available ciclopirox 0.77 % topical cream 1 APPLICATI ON EXTERNALL Y TWICE A DAY 30 DAYS active Not Available Not Available No t Available Synthroid 137 mcg tablet active Not Available Not Available Not Available cyclobenzap rine 5 mg tablet TAKE 1 TABLET BY MOUTH EVERY DAY AT BEDTIME NEEDED FOR PAIN active Not Available Not Available No t Available metoprolol tartrate 25 mg tablet TAKE 1 TABLET BY MOUTH TWO TIMES A DAY. REFILL PER YOUR PRIMARY CARE DOCTOR OR CARDIOLOG IST active Not Available Not Available No t Available pregabalin 50 mg capsule active Not Available Not Available Not Available FreeStyle Lite Strips USE TO TEST BLOOD SUGARS DAILY. DX E11.9 active Not Available Not Available No t Available GaviLyte-G 236 gram-22.74 gram-6.74 gram-5.86 gram oral solution 11/16 completed Not Available Not Available Not Available Xarelto 20 mg tablet TAKE 1 TABLET BY MOUTH DAILY BEFORE DINNER active Not Available Not Available No t Available Vitals Date Recorded Body height Body mass index (BMI) Body weight Provider Name and Address Organization Details Last Updated DateTime 06/01/2023 162.56 cm 38.3 kg/m2 193278.1 g Angel Luis Villagran [facility] 06/01/2023 13:11:28 Date Recorded Body height Body mass index (BMI) Body weight Provider Name and Address Organization Details Last Updated DateTime 11/17/2023 162.56 cm 38.3 kg/m2 432771.1 g KRISTOPHER Waterman'YECENIA [facility] 11/17/2023 13:06:43 Social History Question Answer Notes LastModified by Organizat ion Details LastModified Time What Is Your Relationship Status? [email or web address] Information not available 11/17/2023 Sex: Unknown Functional Status None recorded. Mental Status None recorded. Family History Nothing Reported. Medical History Condition Response Allergies/Hayfever N Coronary Artery Disease N Anxiety/Depression N Breathing or lung disorders N Emphysema N Nerve Disorders N Thyroid Problems Y COPD N Pacemaker N Anemia N Kidney/Bladder Problems N Vascular Disease N Heart Trouble Y Heart Attack ([place]) N Gastrointestinal Disease N Cholesterol Y Diabetes Y Autoimmune disease N Bleeding Disorder N Inflammatory Joint disease N Orthotics N Arthritis Y Seizures/Epilepsy N Blood Clot N AIDS/HIV N Congestive Heart Failure (CHF) N Acid Reflux (GERD) N Cancer N Stroke N Asthma N Circulation Problems N Peripheral Vascular Disease N Sleep Apnea N Hepatitis N Heart Disease N Rheumatoid Arthritis N Arrhythmia N Pulmonary Embolism N Headaches N Fibromyalgia N Hypertension Y Osteoporosis N Gynecological HistoryNo gynecological history recorded. Obstetrics History GPAL:G 0 P 0 0 0 0 Past Encounters Encounter ID Performer Location Encounter Start Date Encounter Closed Date Diagnosis/Indication Diagnosis SNOMED-CT Code Diagnosis ICD10 Code [id number] [facility] [address] [place] [address] 06/01/2023 13:02:02 06/01/2023 14:07:40 Bilateral shoulder joint pain 5453135363 1484336 M25.511 M25.512 Non-trauma tic partial tear of left rotator cuff 3943274528 202234 M75.112 Non-trauma tic partial tear of right rotator cuff 6362591286 574102 M75.111 Osteoarthr itis of first carpometacarpal joint of right hand 0748917282 40894 M18.11 [id number] [facility] [address] [place] [address] 11/17/2023 12:55:15 11/17/2023 14:52:02 Non-traumatic partial tear of right rotator cuff 8607782300 231125 M75.111 Health Concerns Section Related Observation LastModified by Organization Detai ls LastModified Time None Recorded Concern Status LastModified by Organization Details LastModified Time None Recorded Advance Directives Directive None Recorded Payers Encounter Date Sequence Insurance Name Policy Number Policy [place] Covered Member ID [place] Member ID Guarantor Name 06/01/2023 2 [place] [id number] Krystal Chase [id number] Krystal Chase 06/01/2023 1 [place] [facility] Krystal Chase [id number] Krystal Chase 11/17/2023 2 [place] [id number] Krystal Chase [id number] Krystal Chase 11/17/2023 1 [place] [facility] Krystal Chase [id number] Krystal Chase Notes Date Note Type Note Provider Name and Address Organization Details Recorded Time 06/01/2023 text/html I am seeing the patient today under the supervision of Dr. Dawn who was available but who did not see the patient.HPI:The patient's a 78-year-old right-handed female comes in the office completed to discomfort on both shoulders and her right thumb. She denies injury to the shoulders. She has generalized pain more with overhead activities. She has pain rolling over at night in regards to both shoulders. Also, she has pain with gripping activities in regards to the right hand. The pain is over the base of the right thumb. She does wear a brace on the thumb at times.Past family, medical, social history and review of systems has been reviewed, updated and is located in the patient? s chart.Examination:Th e patient is well appearing and in no apparent distress. Alert and oriented x3. Gait is symmetric. No significant swelling, warmth, erythema either shoulder. Her active range of motion is forward elevation near 170?? bilaterally with retropatellar crepitus and pain through mid range manipulations bilaterally. 4/5 strength of the shoulders. Good stability both shoulders. This positive tenderness over the CMC joint of the right thumb. She has a positive grind test of the right thumb. Peripheral, vascular, lymphatic examination, skin, neurological, coordination, reflexes, sensation are within normal limits.X-rays ordered, obtained and reviewed at [facility] 4 views of both shoulders reviewed demonstrate severe degenerative changes of the AC joint. Mild degenerative changes of the glenohumeral joint bilaterally. There is significant cystic changes in the humeral head the left side is worse than the right.Impression:Deg enerative rotator cuff disease of both shoulders. CMC arthritis of right thumbPlan:I reviewed the x-rays and diagnosed with the patient. We discussed conservative management for her problem. We did discuss the risks, options, benefits and regards to reverse total shoulder arthroplasty. We discussed the surgeries of rehabilitation process. She does not wish to consider surgical intervention for the shoulders. Activity modification discussed. A home exercise program was reviewed. P.r.n. NSAIDs can be used. We discussed risks associated with NSAID use. We discussed continue bracing for the right thumb. We discussed injection therapy for the shoulder and for the thumb. Injected 80 mgs of Kenalog, and 10cc of ?? % Marcaine under sterile conditions into the bilateral shoulder subacromial space. Patient tolerated the injection well. Moderating activities with the upper extremity recommended. I injected 40 mg of Kenalog and 1 cc 1% lidocaine into the first CMC joint of the right hand under sterile conditions. River Stover PA-C [address] [place] [address] [address], [place], [address], [facility] 06/01/2023 13:59:54 11/17/2023 text/html I am seeing the patient today under the supervision of {{Nereyda* Brothers Ashli Miller}} who was available but who did not see the patient. HPI: Patient returns for follow-up of right shoulder pain. Patient has noted degenerative rotator cuff disease of the right shoulder. Patient has been doing well with conservative management. Past family, medical, social history and review of systems has been reviewed, updated and is located in the patient? s chart. Examination: The patient is well appearing and in no apparent distress. Alert and oriented x3. Gait is symmetric. No significant swelling warmth or erythema of the right shoulder. Range of motion of the shoulder: Decreased in all planes with pain and crepitus. 4-5 strength of the right shoulder. Peripheral, vascular, lymphatic examination, skin, neurological, coordination, reflexes, sensation are within normal limits. Impression: Degenerative rotator cuff disease of the right shoulder. Plan: Reviewed diagnosis with the patient today in the office. Discussed role of conservative management. Reviewed home exercise program. Activity modification discussed. P.r.n. Tylenol or NSAIDs can be used. Discussed the role of injection therapies. Injected the subacromial space of the right shoulder. Follow up p.paresh. River Stover PA-C [address], [place], [address], [facility] 11/17/2023 13:21:22 OBGyn Episode No OBEpisode recorded.
--- OUTSIDE RECORDS SUMMARY | 2024-02-01 12:58 | XMS_ITS | Patient Health Record ---
[facility] Address [address] [place], [place] [address] Care Team Providers Care Derrick Follower Name Role Phone Tracey Crouch MD Primary Care Provider Unava ilable Black, Stephanie Unavailable [phone] Allergies Allergen (clinical drug ingredient) Drug/Non Drug Allergy documented on EMR Reaction Allergy Type Onset Date Status ampicillin Ampicillin Unknown Drug Allergy Activ e ibuprofen Ibuprofen Unknown Drug Allergy Active Results Component Value Reference Range Notes HEMOGLOBIN A1C (GLYCOHEMOGLO BIN) Reviewed date:01/16/2024 08:29:17 AM Interpretation: Performing Lab: Notes/Report: TOTAL HEMOGLOBIN (HGBA1C) 6.2 HEMOGLOBIN A1C (GLYCOHEMOGLO BIN) Reviewed date:10/03/2023 09:39:03 AM Interpretation: Performing Lab: Notes/Report: HEMOGLOBIN A1C (HH) 5.7 Reason For Referral No Information Medications Medication SIG (Take, Route, Frequency, Duration) Notes Start Date End Date Status Ciclopirox Olamine 0.77% external Apply to effected areas twice a day for 30 days 08/09/2019 Not-Taking MSM Not-Taking Diclofenac Sodium No t-Taking Meloxicam 15 MG 1 tablet Orally Once a day for 30 day(s) Not-Taking glipiZIDE 5 MG 1 tablet 30 minutes before breakfast Orally Once a day for 30 day(s) Not-Taking Multivitamin Not-Nacho ing metFORMIN HCl 500 MG 1 tablet with a kisha l Orally Once a day for 30 day(s) Not-Taking Pregabalin 3X DAY Active Fish Oil 1200 MG Orally Not -Taking Magnesium Not-Taking Simvastatin 20 MG 1 tablet in the [...] (M20.41,M20.42), Preulcerative Skin Lesion(s) (L85.1 02/04/2020 Not-Taking Lisinopril 10 MG 1 tablet Orally Once a day for 30 day(s) Active Levothyroxine Sodium 137 MCG 1 tablet in the morning on an empty stomach Orally Once a day for 30 days Active Xarelto Active Losartan Potassium 25 MG as directed Ora l for 30 days Active Extra Depth Orthopedic Shoes (1 Pair) with Customized Heat Molded Multidensity Innersoles (3 Pair) as directed Dx: NIDDM/Polyneuropathy (E11.42), Hammertoe Foot Deformity (M20.41,M20.42), Preulcerative Skin Lesion(s) (L85.1 10/03/2023 Active Omeprazole 20 MG 1 capsule 30 minutes before morning meal Orally Once a day for 30 day(s) Active Calcium + D Active Immunizations Vaccine Route Administration Date Status Comme nts COVID-19 Pfizer BioNTech Vaccine Unknown 12/06/2020 Administered First Dose: 04/09/20 Second Dose: 04/30/2020 Influenza Unknown 12/12/2018 Administered Influenza Unknown 10/29/2019 Administered Influenza Unknown 11/21/2020 Administered Influenza Unknown 11/20/2021 Administered Influenza Unknown 10/22/2022 Administered Social History Tobacco Use: Social History Observation [...] Are you an other tobacco user? No Problems Problem Type SNOMED Code ICD Code Onset Dates Problem Status W/U Status Risk Notes Problem Acquired hammer toe of right foot (069780760365125 5) Other hammer toe(s) (acquired), right foot (M20.41) Active confirmed Problem Acquired hallux valgus (26024585) Hallux valgus (acquired), left foot (M20.12) Active confirmed Problem Acquired hammer toe of left foot (199767364093780 3) Other hammer toe(s) (acquired), left foot (M20.42) Active confirmed Problem Acquired hallux valgus (71572844) Hallux valgus (acquired), right foot (M20.11) Active confirmed Problem Polyneuropathy due to type 2 diabetes mellitus (000247763) Type 2 diabetes mellitus with diabetic polyneuropathy (E11.42) Active confirmed Problem 333045978 Neuropathy (G62.9) Active confirmed Problem Mononeuropathy of lower limb (400941592) Neuritis of right foot (G57.91) Active confirmed Problem Localized, primary osteoarthritis of the ankle and/or foot (713156100) Osteoarthritis of left ankle and foot (M19.072) Active confirmed Problem Ulcer of toe of right foot (disorder) (581434571794273 01) Skin ulcer of toe of right foot, limited to breakdown of skin (L97.511) Active confirmed Response to treatment Problem Ulcer of toe of left foot (disorder) (016002442679784 02) Skin ulcer of toe of left foot, limited to breakdown of skin (L97.521) Active confirmed Response to treatment Nonapplicable Problem 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) Active confirmed Response to treatment Vital Signs Blood pressure diastolic 89 mm Hg 01/16/2024 Height 5 ft 6 in in 01/16/2024 Blood pressure systolic 114 mm Hg 01/16/2024 Weight 217 lbs 01/16/2024 BMI 35.02 kg/m2 01/16/2024 Procedures Procedure Date Ordered Date Performed Result Body Sit e 90189-LAZU SKIN LESIONS, 2 TO 4 04/04/2023 N/A T6805-ZBONTDEE DYSTROPHIC NAILS ANY # 04/04/2023 N/A 65414-Isbdatxt Plate 07/04/2023 N/A 20029-INXA SKIN LESIONS, 2 TO 4 07/04/2023 N/A L2044-EWFJOWUI DYSTROPHIC NAILS ANY # 07/04/2023 N/A 51627-IABO SKIN LESIONS, 2 TO 4 10/03/2023 N/A A7855-QVANJMNL DYSTROPHIC NAILS ANY # 10/03/2023 N/A 26193- Debride <25 sq cm 01/16/2024 N/A 20709-RNZR SKIN LESIONS, 2 TO 4 01/16/2024 N/A W5110-BYEHLKRU DYSTROPHIC NAILS ANY # 01/16/2024 N/A Encounters Encounter Location Date Provider Diagnosis [address] [address] 04/04/2023 Stephanie Black Pain in right foot M79.671 ; Neuritis of right foot G57.91 ; Type 2 diabetes mellitus with diabetic polyneuropathy E11.42 ; Hypertrophy of bone of left foot M89.372 ; Pain in left foot M79.672 and Osteoarthritis of left ankle and foot M19.[address] [address] 07/04/2023 Stephanie Black Pain in right foot M79.671 ; Neuritis of right foot G57.91 ; Type 2 diabetes mellitus with diabetic polyneuropathy E11.42 ; Hypertrophy of bone of left foot M89.372 ; Pain in left foot M79.672 ; Osteoarthritis of left ankle and foot M19.072 and Ingrown nail L60.[address] [address] 10/03/2023 Stephanie Black Neuritis of right fo ot G57.91 ; Other hammer toe(s) (acquired), right foot M20.41 ; Pain in right foot M79.671 ; Hypertrophy of bone of left foot M89.372 ; Pain in left foot M79.672 ; Osteoarthritis of left ankle and foot M19.072 ; Other hammer toe(s) (acquired), left foot M20.42 and Type 2 diabetes mellitus with diabetic polyneuropathy E11.42 [facility] [address] 01/16/2024 Stephanie Chapin Other hammer toe(s) (acquired), right foot M20.41 ; Other hammer toe(s) (acquired), left foot M20.42 ; Type 2 diabetes mellitus with diabetic polyneuropathy E11.42 and Skin ulcer of toe of left foot, limited to breakdown of skin L97.[address] [address] 04/04/2023 Stephanie Chapin Assessments Encounter Date Diagnosis (ICD Code) Assessment Notes Treatment Notes Treatment Clinical Notes Section Notes 04/04/2023 Pain in right foot (ICD-10 - M79.671) 04/04/2023 Neuritis of right foot (ICD-10 - G57.91) 07/04/2023 Pain in right foot (ICD-10 - M79.671) 07/04/2023 Neuritis of right foot (ICD-10 - G57.91) 10/03/2023 Other hammer toe(s) (acquired), right foot (ICD-10 - M20.41) Patient Educated with: DIABETIC FOOT CARE INSTRUCTIONS. pdf (DIABETIC FOOT CARE INSTRUCTIONS. pdf) 10/03/2023 Neuritis of right foot (ICD-10 - G57.91) 01/16/2024 Other hammer toe(s) (acquired), right foot (ICD-10 - M20.41) 01/16/2024 Other hammer toe(s) (acquired), left foot (ICD-10 - M20.42) 01/16/2024 Type 2 diabetes mellitus with diabetic polyneuropathy (ICD-10 - E11.42) 10/03/2023 Pain in right foot (ICD-10 - M79.671) 07/04/2023 Type 2 diabetes mellitus with diabetic polyneuropathy (ICD-10 - E11.42) 04/04/2023 Type 2 diabetes mellitus with diabetic polyneuropathy (ICD-10 - E11.42) 04/04/2023 Hypertrophy of bone of left foot (ICD-10 - M89.372) 07/04/2023 Hypertrophy of bone of left foot (ICD-10 - M89.372) 01/16/2024 Skin ulcer of toe of left foot, limited to breakdown of skin (ICD-10 - L97.521) Response to treatment Nonapplicable Patient Educated with: WOUND CARE INSTRUCTIONS. pdf (WOUND CARE INSTRUCTIONS. pdf) 10/03/2023 Hypertrophy of bone of left foot (ICD-10 - M89.372) 10/03/2023 Pain in left foot (ICD-10 - M79.672) 07/04/2023 Pain in left foot (ICD-10 - M79.672) 04/04/2023 Pain in left foot (ICD-10 - M79.672) 04/04/2023 Osteoarthritis of left ankle and foot (ICD-10 - M19.072) 07/04/2023 Osteoarthritis of left ankle and foot (ICD-10 - M19.072) 10/03/2023 Osteoarthritis of left ankle and foot (ICD-10 - M19.072) 10/03/2023 Other hammer toe(s) (acquired), left foot (ICD-10 - M20.42) 07/04/2023 Ingrown nail (ICD-10 - L60.0) 10/03/2023 Type 2 diabetes mellitus with diabetic polyneuropathy (ICD-10 - E11.42) 01/16/2024 Other Plan Of Treatment Pending Test Test Name Order Date 83988-Edde Destruction, 1-14 12/07/2021 79421-Kquaesir Plate 07/28/2020 85120-Bhjjstti Plate 02/09/2021 41964-Oefkmnsx Plate 07/04/2023 96476- Debride <25 sq cm 01/16/2024 98956-GNPC SKIN LESIONS, 2 TO 4 01/16/20 24 76384-HXOZ SKIN LESIONS, 2 TO 4 10/03/19 24 17977-WDMO SKIN LESIONS, 2 TO 4 07/04/19 24 55393-MLHD SKIN LESIONS, 2 TO 4 02/10/20 21 69863-GNKU SKIN LESIONS, 2 TO 4 03/22/19 23 65284-GPFY SKIN LESIONS, 2 TO 4 06/29/19 23 32405-XQKP SKIN LESIONS, 2 TO 4 08/31/19 23 85896-MDHM SKIN LESIONS, 2 TO 4 12/28/19 23 22707-JVPT SKIN LESIONS, 2 TO 4 04/04/19 24 64288-QWSR SKIN LESION 12/07/2021 42085-ROCU SKIN LESION 05/25/2021 10441-WGKO SKIN LESION 09/03/2021 63395-JWCB SKIN LESION 07/28/2020 91022-QZRA SKIN LESION 10/30/2020 41167-ROXO SKIN LESION 05/15/2020 86103-NFGA SKIN LESION 04/30/2019 47679-LPLQ SKIN LESION 08/09/2019 07154-MIGF SKIN LESION 11/12/2019 62534-WMPI SKIN LESION 02/04/2020 F4268-TNDAEBAE DYSTROPHIC NAILS ANY # Q4537-GRQJSCDI DYSTROPHIC NAILS ANY # A2436-SUDVCELZ DYSTROPHIC NAILS ANY # E0723-OZPHAAJC DYSTROPHIC NAILS ANY # E7696-KWCKVHDN DYSTROPHIC NAILS ANY # G6479-PLZVLOPH DYSTROPHIC NAILS ANY # Y2096-ICXCSHQA DYSTROPHIC NAILS ANY # Z0039-JRLFDPZN DYSTROPHIC NAILS ANY # W8310-WMDWNDWX DYSTROPHIC NAILS ANY # J4573-XUEEAWXZ DYSTROPHIC NAILS ANY # Y1445-PTFLUEJB DYSTROPHIC NAILS ANY # N8873-XJGESCLA DYSTROPHIC NAILS ANY # H5108-TBMASHQA DYSTROPHIC NAILS ANY # S6521-LSYMIFMQ DYSTROPHIC NAILS ANY # J3102-HVCALFJB DYSTROPHIC NAILS ANY # C3470-CMJQQWUU DYSTROPHIC NAILS ANY # O6740-KYHYZPHY DYSTROPHIC NAILS ANY # J0571-URHUOPTD DYSTROPHIC NAILS ANY # A0250-HCNHPJYZ DYSTROPHIC NAILS ANY # Next Appt Details Provider Name:Stephanie Chapin , 04/19/2024 08:15:00 AM, [address] [place] [address], [place], [address], Insurance Providers Payer Name Payer Address Payer Phone Subscriber Number Group Number Insured Name Patient Relationship to Insured Coverage Start Date Coverage End Date Medicare [employer] [address] [place] [address] [id number] Krystal Chase Self - patient is the insured [employer] [address] [place] [address] [id number] Krystal Chase Self - patient is the insured Medical (General) History Medical History History ICD Code Arthritis Cataracts Diabetes mellitus High blood pressure Neuropathy Psoriasis thyroid Measles Mumps Chicken pox Bone implants/screws A fib Surgical History Surgery Date(Month/Year) hysterectomy 08/14/13 right knee replacement 09/16/16 left knee replacement 11/18/16 prolapse bladder Hospitalization History Reason Date(Month/Year) cardio reset 2023 blood pressure to low - [facility] 2023 [facility] fluid build up 2023 sleep study 12/2023
--- OUTSIDE RECORDS SUMMARY | 2024-02-01 12:58 | XMS_ITS ---
[facility] Address [address] [place] [address] Care Team Providers Care Duct Cleaner Name Role Phone Tracey Crouch MD Primary Care Provider Unava ilable Black, Stephanie Unavailable [phone] Allergies Allergen (clinical drug ingredient) Drug/Non Drug Allergy documented on EMR Reaction Allergy Type Onset Date Status ampicillin Ampicillin Unknown Drug Allergy Activ e ibuprofen Ibuprofen Unknown Drug Allergy Active REASON FOR VISIT At Risk Footcare, Toe Irritation, Open sore - Toe Medications Medication SIG (Take, Route, Frequency, Duration) [...] (M20.41,M20.42), Preulcerative Skin Lesion(s) (L85.1 02/04/2020 Not-Taking Diclofenac Sodium No t-Taking Meloxicam 15 MG 1 tablet Orally Once a day for 30 day(s) Not-Taking Multivitamin Not-Nacho ing Fish Oil 1200 MG Orally Not -Taking Magnesium Not-Taking Simvastatin 20 MG 1 tablet in the even ing Orally Once a day for 30 day(s) Not-Taking Ciclopirox Olamine 0.77 % 1 application Externally Twice a day for 30 days Not-Taking Levothyroxine Sodium 137 MCG 1 tablet in the morning on an empty stomach Orally Once a day for 30 days Active Losartan Potassium 25 MG as directed [...] 30 day(s) Active Calcium + D Active metFORMIN HCl 500 MG 1 tablet with a kisha l Orally Once a day for 30 day(s) Not-Taking Pregabalin 3X DAY Active Lisinopril 10 MG 1 tablet Orally Once a day for 30 day(s) Active Xarelto Active glipiZIDE 5 MG 1 [...] Problem Status W/U Status Risk Notes Problem Ulcer of toe of left foot (disorder) (922058588 [id number]) Skin ulcer of toe of left foot, limited to breakdown of skin (L97.521) Active confirmed Response to treatment Nonapplicable Problem Ulcer of toe of right foot (disorder) (274009641 [id number]) Skin ulcer of toe of right foot, limited to breakdown of skin (L97.511) Active confirmed Response to treatment Vital Signs Height 5 ft 6 in in 01/16/2024 Weight 217 lbs 01/16/2024 BMI 35.02 kg/m2 01/16/2024 Blood pressure systolic 114 mm Hg 01/16/20 Blood pressure diastolic 89 mm Hg 024 Procedures Procedure Date Ordered Date Performed Result Body Sit e 50837- Debride <25 sq cm 01/16/2024 N/A 76749-SDVS SKIN LESIONS, 2 TO 4 01/16/2024 N/A A4751-JNDWOIBP DYSTROPHIC NAILS ANY # 01/16/2024 N/A Encounters Encounter Location Date Provider Diagnosis [facility] [address] [address] 01/16/2024 Stephanie Black Other hammer toe(s) (acquired), right foot M20.41 ; Other hammer toe(s) (acquired), left foot M20.42 ; Type 2 diabetes mellitus with diabetic polyneuropathy E11.42 and Skin ulcer of toe of left foot, limited to breakdown of skin L97.521 Assessments Encounter Date Diagnosis (ICD Code) Assessment Notes Treatment Notes Treatment Clinical Notes Section Notes 01/16/2024 Other hammer toe(s) (acquired), right foot (ICD-10 - M20.41) 01/16/2024 Other hammer toe(s) (acquired), left foot (ICD-10 - M20.42) 01/16/2024 Type 2 diabetes mellitus with diabetic polyneuropathy (ICD-10 - E11.42) 01/16/2024 Skin ulcer of toe of left foot, limited to breakdown of skin (ICD-10 - L97.521) Response to treatment Nonapplicable Patient Educated with: WOUND CARE INSTRUCTIONS. pdf (WOUND CARE INSTRUCTIONS. pdf) 01/16/2024 Other Plan Of Treatment Treatment Notes Assessment Notes Skin ulcer of toe of left fo ot, limited to breakdown of skin Patient Educated with: WOUND CARE INSTRUCTIONS.pdf (WOUND CARE INSTRUCTIONS.pdf) Pending Test Test Name Order Date 74211- Debride <25 sq cm 01/16/2024 15031-ERBX SKIN LESIONS, 2 TO 4 01/16/20 24 P1746-NWMADUBK DYSTROPHIC NAILS ANY # Next Appt Details Follow Up: 3 Months, Reason: Provider Name:Stephanie Chapin , 04/19/2024 08:15:00 AM, [address] [place], [address], Procedure Notes * Category Sub-Category Detail Notes Debride skin< 25 sq cm Open wound Physician of record performed open wound selective debridement of first 25 sq cm or less, of devitilized necrotic/nonviable soft tissue, fibrin, and exudate extending from the epidermis through the dermis, utilizing sharp dissection with sterile 15 blade, and/or tissue nippers. Sterile antibiotic dressing applied, ANESTHESIA- was accomplished TOPICALLY with Lidocaine Hydrochloride Jelly 2 percent. Hemostasis was achieved through direct pressure. Post debridement measurements: 6 mm x 4 mm x 2mm. Character of the wound post debridement is stable (98020) Keratoma Treatment Parring or Cutting o f Benign Hyperkeratotic Lesion(s) 81278 (2-4 Lesions) - The Benign hyperkeratotic lesions, [...] Krystal CHASE ADOB: [birth year] (78 yo F)Acc No.[id number]:01/16/2024 Progress Note Patient:?KIP Krystal Yo Provider:?Stephanie Chapin DPM :1945???Age:78 Y???Sex:Female D ate:01/16/2024 Address: [address] [facility] Pcp:Tracey Crouch MD Subjective: * Chief Complaints: * ???At Risk FootcareToe Irrit ationOpen sore - Toe * HPI: ???At Risk footcare:?Pt States Last PCP Visit:?Date?01/09/2024 ???Toe pain:?Location:?B/L feet.?Duration:?several years.?Course:?, improved.?Aggravated by:?shoes, any pressure.?Treatments:?change in shoes , Rx shoes (orthofeet with inserts).?Skin problems:?Treatments:?none.? * ROS:?General/Constitutional:?Nausea?denies.?Vomiting?denies.?Hunger Thirst?denies.?Loss appetite?denies.?Chills?denies.?Fatigue?denies.?Fever?denies.?Night Sweats?denies.?Unexplained weight loss?denies.?Unexplained weight gain?denies.?HEENTM:?Dentures?denies.?Dizziness?denies.?Glasses/contacts?admits.?Retinopathy?den ies.?Blurred/double vision?denies.?TMJ?denies.?Discharge/drainage?denies.?Implants?denies.?Sore throat?denies.?Dental implants?denies.?Hard of hearing ?denies.?Difficulty chewing/swallowing/speaking?denies.?Nose bleeds?denies.?Sore mouth?denies.?Respiratory:?On O xygen?denies.?Pneumonia/pleurisy?denies.?Bronchitis?denies.?Emphysema?denies.?Co ughing?denies.?Cough blood?denies.?Shortness of breath?denies.?Wheezing?denies.?Cardiovascular:?Pacemaker?denies.?MVP?denies.?WPW?denies.?CHF?denies.?Heart attack?denies.?Septal defect?denies.?Rapid beat?denies.?Chest pain ?denies.?Atrial Fib.?denies.?Murmur/Palpitations?denies.?Gastrointestinal:?Hemorrhoids?admits.?Stomach/Abdominal pain?denies.?Dark blood stool?denies.?Irritable bowel ?denies.?Constipation?denies.?Diarrhea?denies.?Hematology:?Swelling?denies.?Clots?denies.?Varicose Veins?denies.?Bruising?denies.?Bleeding problem?denies.?Genitourinary:?Blood urine?denies.?Frequent/Painfu/urination/bladder control?denies.?Kidney stones?denies.?Infection (UTI)?denies.?Nephropathy?denies.?sex trans dis (STD)?denies.?Prostate?denies.?Musculoskeletal:?Hammertoes?, admits.?Bunions?denies.?Back Pain?admits.?Muscle Cramps/ Resting?denies.?Muscle cramps / walking?denies.?Generalized aches and pains?admits.?Weakness?denies.?Integ.:?Ortega?denies.?Scars?admits.?Corns/calluses?admits.?Ingrown nails?denies.?Painful nails?denies.?Open Sores?denies.?Rashes?denies.?Neurologic:?Difficulty sleeping?denies.?Brain disorder?denies.?Numbness?denies.?Balance t rouble?denies.?Confusion?denies.?Fainting/blackouts?denies.?Tingling?denies.?Wai mors?denies.? * Medical History:? * Surgical History:?hysterecto my 08/14/13right knee replacement 09/16/16left knee replacement 11/18/16prolapse bladder * Hospitalization/Major Diagno stic Procedure:?sleep study [facility]- heart fluid build up lood pressure to low - [facility] ardio reset 2023 * Family History:?Mother: dece ased, foot problems, [...] or less (1 point) ?Points?1 ?Interpretation?Negative ???Miscellaneous:?Caffeine: no. ?Children: yes. ?Exercise: no. ?Marital status: . 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 * Medications:?TakingPregaarmand lozoya , Notes to Pharmacist: 3X DAYXarelto Lisinopril 10 MG Tablet 1 tablet Orally Once a day Levothyroxine Sodium 137 MCG Tablet 1 tablet in the morning on an empty stomach Orally Once a day Omeprazole 20 MG Capsule Delayed Release 1 capsule 30 minutes before morning meal Orally Once a day Calcium + D Losartan Potassium 25 MG Tablet as directed Oral Extra Depth Orthopedic Shoes (1 Pair) with Customized Heat Molded Multidensity Innersoles (3 Pair) as directed Dx: NIDDM/Polyneuropathy (E11.42), Hammertoe Foot Deformity (M20.41,M20.42), Preulcerative Skin Lesion(s) (L85.1 Taking Pregabalin , Notes to Pharmacist: 3X DAYTaking Xarelto Taking Lisinopril 10 MG Tablet 1 tablet Orally Once a day Taking Levothyroxine Sodium 137 MCG Tablet 1 tablet in the morning on an empty stomach Orally Once a day Taking Omeprazole 20 MG Capsule Delayed Release 1 capsule 30 minutes before morning meal Orally Once a day Taking Calcium + D Taking Losartan Potassium 25 MG Tablet as directed Oral Taking Extra Depth Orthopedic Shoes (1 Pair) with Customized Heat Molded Multidensity Innersoles (3 Pair) as directed Dx: NIDDM/Polyneuropathy (E11.42), Hammertoe Foot Deformity (M20.41,M20.42), Preulcerative Skin Lesion(s) (L85.1 Not-Taking/PRNMagnesium Simvastatin 20 MG Tablet 1 tablet in the evening Orally Once a day Multivitamin Fish Oil 1200 MG Capsule Orally Ciclopirox Olamine 0.77 % Cream 1 application Externally Twice a day Extra Depth Orthopedic Shoes (1 Pair) with Customized Heat Molded Multidensity Innersoles (3 Pair) as directed Dx: NIDDM/Polyneuropathy (E11.42), Hammertoe Foot Deformity (M20.41,M20.42), Preulcerative Skin Lesion(s) (L85.1 Extra Depth Orthopedic Shoes (1 Pair) with Customized Heat Molded Multidensity Innersoles (3 Pair) as directed Dx: NIDDM/Polyneuropathy (E11.42), Hammertoe Foot Deformity (M20.41,M20.42), Preulcerative Skin Lesion(s) (L85.1 Gabapentin 800 MG Tablet 1 tablet Orally Once a day Diclofenac Sodium Meloxicam 15 MG Tablet 1 tablet Orally Once a day Ciclopirox Olamine 0.77% Cream external Apply to effected areas twice a day MSM glipiZIDE 5 MG Tablet 1 tablet 30 minutes before breakfast Orally Once a day metFORMIN HCl 500 MG Tablet 1 tablet with a meal Orally Once a day Medication List reviewed and reconciled with the patientNot-Taking/PRN Magnesium Not-Taking/PRN Simvastatin 20 MG Tablet 1 tablet in the evening Orally Once a day Not-Taking/PRN Multivitamin Not- Taking/PRN Fish Oil 1200 MG Capsule Orally Not-Taking/PRN Ciclopirox Olamine 0.77 % Cream 1 application Externally Twice a day Not-Taking/PRN Extra Depth Orthopedic Shoes (1 Pair) with Customized Heat Molded Multidensity Innersoles (3 Pair) as directed Dx: NIDDM/Polyneuropathy (E11.42), Hammertoe Foot Deformity (M20.41,M20.42), Preulcerative Skin Lesion(s) (L85.1 Not-Taking/PRN Extra Depth Orthopedic Shoes (1 Pair) with Customized Heat Molded Multidensity Innersoles (3 Pair) as directed Dx: NIDDM/Polyneuropathy (E11.42), Hammertoe Foot Deformity (M20.41,M20.42), Preulcerative Skin Lesion(s) (L85.1 Not-Taking/PRN Gabapentin 800 MG Tablet 1 tablet Orally Once a day Not-Taking/PRN Diclofenac Sodium Not-Taking/PRN Meloxicam 15 MG Tablet 1 tablet Orally Once a day Not-Taking/PRN Ciclopirox Olamine 0.77% Cream external Apply to effected areas twice a day Not-Taking/PRN MSM Not-Taking/PRN glipiZIDE 5 MG Tablet 1 tablet 30 minutes before breakfast Orally Once a day Not-Taking/PRN metFORMIN HCl 500 MG Tablet 1 tablet with a meal Orally Once a day Medication List reviewed and reconciled with the patient * Allergies:?AmpicillinIbuprof enyes[Allergies Verified] Objective: * Vitals:?Ht: 5 ft 6 in, Wt: 2 17, BMI: 35.02, Shoe size: 12, BP: 114/89 mm Hg, BS: 123, Ht-cm: 167.64 cm, Wt-k.43 kg. * ???Past Orders: ???Lab:HEMOGLOBIN A1C (GLYCO HEMOGLOBIN) (Order Date - 01/09/2024) (Collection Date & Time - 01/09/2024 08:28 AM) ? Value Reference Range ?TOTAL HEMOGLOBIN (HGBA1C) 6.2 * Examination: ???Ophthalmology Referral: ?DIABETES EYE EXAM?General Examination: ?GENERAL APPEARANCE:?Reveals a pleasant, alert, well nourished, well- developed, well hydrated individual, who demonstrates proper attention to hygiene/body habitus, and is in no acute distress, Pt serves as own historian for office visit today.?ORIENTED:?person, place, and time.?FOOT EXAM:?Footwear Evaluation?Neurological: ?SENSORY:?exam demonstrates. reduced vibration lower extremity, reduced sharp/dull pin prick discrimination , 5.07 monofilament test performed at plantar aspects of 5 varied sites per foot shows sensation absent, B/L, Pt relates decreased anesthesia, burning , tingling, burning, anesthesia , especially in the evening b/l?.?Dermatologic: ?SKIN FINDINGS:?Skin exam reveals keratotic lesion(s) located at, SUB MTH (s), 5, Right Heel(s), B/L,?.?ULCER:? LOCATION,Distal,T1, SIZE, 4mm X 4mm X 2mm, BASE, granular, RIM, hyperkeratotic, UNDERMINING, absent, TRACKING, Full thickness breakdown of skin, DRAINAGE, serosanguineous, mild, NECROTIC TISSUE, loosely-adherent, yellow slough, MALODOR, absent, CALOR, absent, ERYTHEMA, absent, PAIN ON PALPATION,absent.?Vascular: ?DP PULSES(B):?2/4, B/L.?PT PULSES(B):?2/4, B/L ,.?CAPILLARY FILL TIME:?immediate, all digits, B/L.?TROPHIC CONDITION-TEXTURE/ELASTICITY/TURGOR/HAIR GROWTH(B):?normal, B/L.?TEMPERTURE GRADIENT(C):?normal, warm to cool, proximal to distal, B/L, B/L.?PIGMENTATION:?normal, B/L.?Nails: ?NAILS are:?Elongated, overgrown, dystrophic, , 1-5 B/L.?Orthopedic: ?FOOT MORPHOLOGY:?exostosis , dorsal , midfoot left?.?DIGITAL DEFORMITIES:?Digital contracture, PIPJ, 2-5 B/L, incompl-reducible to push-up test, no over, nor underlapping, with evidence of shoe producing skin irritation at 90 % Less.?FOOTWEAR:?good condition, OT were inspected and noted to be in good condition giving proper support at the present time.? Assessment: * Assessment: 1.?Other hammer toe(s) (acqu ired), right foot - M20.41 (Primary)???Specify :Response to treatment - Improvement???2.?Other hammer toe(s) (acquired), left foot - M20.42???Specify :Response to treatment - Improvement???3.?Type 2 diabetes mellitus with diabetic polyneuropathy - E11.42???4.?Skin ulcer of toe of left foot, limited to breakdown of skin - L97.521???Notes :Response to treatment Nonapplicable??? Plan: * Treatment: 2.?Skin ulcer of toe of left foot, limited to breakdown of skin?Procedure: 09560- Debride <25 sq cm Notes: Patient Educated with: WOUND CARE INSTRUCTIONS.pdf (WOUND CARE INSTRUCTIONS.pdf)?? * Procedures:?Debride skin< 25 sq cm:?Open wound?Physician of record performed open wound selective debridement of first 25 sq cm or less, of devitilized necrotic/nonviable soft tissue, fibrin, and exudate extending from the epidermis through the dermis, utilizing sharp dissection with sterile 15 blade, and/or tissue nippers. Sterile antibiotic dressing applied, ANESTHESIA- was accomplished TOPICALLY with Lidocaine Hydrochloride Jelly 2 percent. Hemostasis was achieved through direct pressure. Post debridement measurements: 6 mm x 4 mm x 2mm. Character of the wound post debridement is stable (88983).?Keratoma Treatment:?Parring or Cutting of Benign Hyperkeratotic Lesion(s)?50486 (2-4 Lesions) - The Benign hyperkeratotic lesions, [...] ING DYSTROPHIC NAILS ANY #, Modifiers: XS 25435 ACTIVE WOUND CARE/20 CM OR <, Modifiers: XS 67735 TRIM SKIN LESIONS, 2 TO 4, Modifiers: [...] have encouraged the patient to call the office.?Shoe Gear Counseling:?A thorough inspection of the patients Rxed shoegear and inserts was performed and findings communicated. We reviewed the many important medical advantages for adhering to regularly wearing these shoe and insert accomidative devices daily as well as reviewed the fact that a failure in accepting these recommedations may be deleterious, unable to prevent, and disadvantagely result in, many pedal complications such as skin irritation, skin ulceration, infection, and even loss of toe/foot/leg/or even their life. Time was also spent reviewing the proper footcare techniques including daily skin moisturization, daily foot inspection for any interruption in skin integrity, open lesions, or sign of infection such as redness/malodor/drainage/swelling as well as daily shoe inspection for the presence of internal foreign bodies and shoe as well as insert wear. Patient questions re: shoes, inserts, and self foot inspections were answered to their satisfaction as the patient verbally confirmed a full understanding of the above information.?Ulcer:?A detailed plan of care was reviewed with the patient. We emphasized the fact that the patient takes on an active participating role in the treatment process and emphasized to them that they are an included, valued, and important member of the wound healing team in order to reach an expedient successful outcome. The patient agreed to follow their medically recommended diet while increasing their protein intake if safely able to do so, maintain proper bodily hydaration, abide by weight-bearing restrictions at all times, quit all current smoking habits if any, and diligently follow any/all dressing change instructions. It was clearly made known to the patient that if they fail to do their part, they will likely extend their course of treatment as well as possibly increase their risk of adverse events including amputation. The patient was instructed on importance of proper wound care consisting of pressure reduction, and proper maintainance of a moist wound environment. The patient is to cleanse the wound with warm soapy water/peroxide/saline, or betadine BID based on product availability. The patient is to apply ( _ Neosporin, Polysporin, or Triple, ___ ) Antibiotic to the wound and cover with a DSD as directed. The patient was instructed to change dressings according to orders, or PRN saturation, leaks. The patient was instructed to monitor and report any signs or symptoms of infection or any untoward reactions. Precautions Taken: Offloading/Pressure reduction via rest/ limited activity to essential to daily life only, cane/ crutches/ walker/ knee scooter/ wheel chair, shoe modification, accommodative padding, sharp debridement, and take/apply medication as directed. THE GOALS of wound debridement to remove devitilized tissue, decrease risk for infection, promote wound healing and prevent further complication were discussed/reviewed. Debridement frequency as indicated.? ??Screening/Special Tests:?Fall Risk?Assessment:?Performed ?Screening:?No falls in the past year * Follow Up:?3 Months * Images: * Sign off status: Completed true * Provider:Robert Chapin DPM Date:?2023 Generated for Farhan gallego/Jacki/Jake on:?02/01/2024 12:58 PM EST History and Physical Notes * HPI (History of Present Illness) Category Sub-Category Detail Notes Category Not es Toe pain Location: B/L feet Duration: several years Course: , improved Aggravated by: shoes, any pressure Treatments: change in shoes , Rx shoes (orthofeet with inserts) Skin problems Treatments: none At Risk footcare Pt States Last PCP Visit: Date: 4 Examination Category Sub-Category Detail Notes Category Not es Neurological SENSORY: exam demonstrate s. reduced vibration lower extremity, reduced sharp/dull pin prick discrimination , 5.07 monofilament test performed at plantar aspects of 5 varied sites per foot shows sensation absent, B/L, Pt relates decreased anesthesia, burning , tingling, burning, anesthesia , especially in the evening b/l BABINSKI REFLEX: TINEL'S COMPRESSION: DEEP TENDON REFLEXES: Dermatologic SKIN FINDINGS: Skin exam reveal s keratotic lesion(s) located at, SUB MTH (s), 5, Right Heel(s), B/L, ULCER: LOCATION,Distal,T1, SIZE, 4mm X 4mm X 2mm, BASE, granular, RIM, hyperkeratotic, UNDERMINING, absent, TRACKING, Full thickness breakdown of skin, DRAINAGE, serosanguineous, mild, NECROTIC TISSUE, loosely- adherent, yellow slough, MALODOR, absent, CALOR, absent, ERYTHEMA, absent, PAIN ON PALPATION,absent Orthopedic FOOT MORPHOLOGY: exostosis , dorsal , mid foot left FOOTWEAR: good condition, OT w ere inspected and noted to be in good condition giving proper support at the present time DIGITAL DEFORMITIES: Digital contracture , PIPJ, 2-5 B/L, incompl-reducible to push-up test, no over, nor underlapping, with evidence of shoe producing skin irritation at 90 % Less General Examination GENERAL APPEARANCE: Reveals a pleasant, alert, well nourished, well-developed, well hydrated individual, who demonstrates proper attention to hygiene/body habitus, and is in no acute distress, Pt serves as own historian for office visit today FOOT EXAM: Lower Extremity Neurological Exa m performed:: Yes ORIENTED: person, place, and t luciano Footwear Evaluation Footwear Evaluation performe d:: Yes Ophthalmology Referral DIABETES EYE EXAM Procedure Perform ed:: Yes ?Date of Exam Performed: 02/21/2023 Findings of Diabetic Eye Exam:: no retin opathy Vascular DP PULSES(B): 2/4, B/L PT PULSES(B): 2/4, B/L , CAPILLARY FILL TIME: immediate, all digi ts, B/L TEMPERTURE GRADIENT(C): normal, warm to cool, proximal to distal, B/L, B/L TROPHIC CONDITION-TEXTURE/ELASTICITY/TURGOR/HAIR GROWTH(B): normal, B/L PIGMENTATION: normal, B/L Nails NAILS are: Elongated, overgrown, dystro phic, , 1-5 B/L
--- OUTSIDE RECORDS SUMMARY | 2024-02-01 12:58 | XMS_ITS | Continuity of Care Document ---
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 Set Up Operator Name Role Phone Miko RAE, Tracey Diehl Primary Care Phys[id number] Date[facility]/29/23 - 01/05/[address] [id number] Attending Physician: Eric Ghotra MD Admitting Physician: Eric Ghotra MD Referring Physician: Raz Jacobo MD Encounter Type: Preadmit Daystay Allergies, Adverse Reactions, Alerts Substance Criticality Severity Reaction Reaction Severity Status ampicillin hives Active ibuprofen blurred vision Activ e Immunizations Given and Recorded Vaccine Date Status Refusal Reason SARS-CoV-2(COVID-19)mRNA-LNP vac([id number]) 11/16/23 Recorded SARS-CoV-2(COVID-19)mRNA-LNP vac([id number]) 12/15/22 Recorded influenza virus vaccine, inactivated 11/10/23 Give n influenza virus vaccine, inactivated 12/15/22 Give n influenza virus vaccine, inactivated 11/30/21 Martir rded influenza virus vaccine, inactivated 11/03/20 Martir rded influenza virus vaccine, inactivated 10/27/19 Martir rded influenza virus vaccine, inactivated 11/29/18 Martir rded influenza virus vaccine, inactivated 11/15/17 Martir rded influenza virus vaccine, inactivated 12/28/16 Martir rded influenza virus vaccine, inactivated 11/21/14 Martir rded influenza virus vaccine, inactivated 11/21/12 Martir rded influenza virus vaccine, inactivated 01/10/12 Martir rded influenza virus vaccine, inactivated 11/03/10 Martir rded influenza virus vaccine, inactivated 12/05/09 Martir rded influenza virus vaccine, inactivated 11/12/08 Martir rded influenza virus vaccine, inactivated 12/18/07 Martir rded influenza virus vaccine, inactivated 11/25/06 Martir rded influenza virus vaccine, inactivated 02/09/06 Martir rded influenza virus vaccine, inactivated 12/29/04 Martir rded RSV vaccine preF3, recombinant 01/21/23 Recorded pneumococcal 20-valent conjugate vaccine 09/14/22 Given [id number] 12y+ bivalent booster vax 06/15/22 Given [id number] 12y+ bivalent booster vax 11/30/21 Recorded SARS-CoV-2 mRNA ([id number]-hossy) vax 09/12/21 Recorded SARS-CoV-2 (COVID-19) mRNA BNT-162b2 vac 12/06/20 Recorded SARS-CoV-2 (COVID-19) mRNA BNT-162b2 vac 04/30/20 Given SARS-CoV-2 (COVID-19) mRNA BNT-162b2 vac 04/09/20 Given zoster vaccine, inactivated 05/19/18 Recorded zoster vaccine, inactivated 03/21/18 Recorded pneumococcal 23-valent vaccine 09/02/15 Recorded pneumococcal 23-valent vaccine 04/24/12 Recorded pneumococcal 23-valent vaccine 11/19/08 Recorded pneumococcal 13-valent vaccine 08/22/15 Recorded tetanus/diphtheria/pertussis, acel(Tdap) 04/24/12 Recorded tetanus-diphtheria toxoids (Td) 11/03/10 Recorded tetanus-diphtheria toxoids (Td) 05/05/00 Recorded Problem List Condition Confirmation Course Effective Dates Status Health Status Informant CHF exacerbation Confirmed Active Encounter for completion of form with patient Confirmed Active Atrial fibrillation Confirmed Active Bilateral leg edema Confirmed Active Breast cancer screening Confirmed Active Elevated troponin level Confirmed Active Chronic kidney disease, stage 3 Confirmed Active Vaccine counseling Confirmed Active Cystocele Confirmed Active Osteoarthritis, shoulder Confirmed Active Diarrhea Confirmed Active GERD (gastroesophageal reflux disease) Confirmed Active Status post cholecystectomy Confirmed Active Hypercholesteremia Confirmed Active Hypercoagulable state, secondary Confirmed Active Hyperkalemia Confirmed Active Hyperlipidemia Confirmed Active Hypertension Confirmed Active Hypertensive nephropathy Confirmed Active Hypomagnesemia Confirmed Active Hypothyroidism Confirmed Active Rotator cuff tendinitis Confirmed Active Musculoskeletal strain Confirmed Active Intertrigo Confirmed Active Lactose intolerance Confirmed Active Lumbar strain Confirmed Active Lumbar radiculitis Confirmed Active Pulmonary hypertension, mild Confirmed Active Polyarthralgia Confirmed Active Diabetic neuropathy Confirmed Active Advance care planning Confirmed Active Psoriasis Confirmed Active Renal insufficiency Confirmed Active Severe obesity (BMI 35.0-39.9) with comorbidity Confirmed Active Situational stress Confirmed Active Tick bite Confirmed Active Tinea pedis of both feet Confirmed Active Type 2 diabetes mellitus Confirmed Active Gastroenteritis due to norovirus Confirmed Active Low vitamin D level Confirmed Active Social History Social History Type Response Smoking Status Former smoker entered on: 02/19/13 Sex Sex Representation Female (finding) Patient Care team information Care Team Personnel Name: Miko RAE, Tracey Diehl Position: [facility] Physician - Primary Care Member Role: PCP Address: [address] [place] [address], [address] [place] [id number] Telecom: Name: Mary Cao RN Position: [facility] SN RN Member Role: Primary Care Nurse Name: Tiffanie Del Toro RN Position: [facility] MR W/ Erma Member Role: Primary Care Nurse Name: Sherrie Zepeda RN Position: [facility] RN Member Role: Primary Care Nurse Name: Yee Martin RN Position: [facility] RN Member Role: Primary Care Nurse Name: Bijan Calderón Position: [facility] Outreach Member Role: Lifetime Consulting Physician Name: Blaise Gibson RN Position: [facility] RN Member Role: Primary Care Nurse Name: Abbi Montgomery RN Position: [facility] RN Member Role: Primary Care Nurse Name: Trace Hsu RN Position: [facility] SN RN Member Role: Primary Care Nurse Care Team Related Persons Name: JESSIKA SHIN Insurance Providers Guarantor name: JAYME SHIN Health Plan Information #: 1 Payer: MEDICARE PART B OUTPT Member Number: [id number] Policy Number: NA Group Number: NA Health Plan Information #: 2 Payer: MEDEX Member Number: [id number] Policy Number: NA Group Number: NA
== END 2024-01-30 08:28 | disposition home or self-care (01) ==
LOC: HO.LAB 08:27
PROVIDERS: PCP Internal Medicine; Visit Provider Internal Medicine
DX: E83.42 Hypomagnesemia (principal); I10 Essential (primary) hypertension
CPT/HCPCS: 36415; 80048; 83735

== ENCOUNTER 2024-07-30 15:35 | Outpatient (REF) | payer MEDICARE, SELFPAY ==
--- OUTSIDE RECORDS SUMMARY | 2024-07-30 17:19 | XMS_ITS | Continuity of Care Document ---
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 Name Role Phone Miko RAE, Tracey Diehl Primary Care Physician [place] [facility] [place]/29/24 [facility] [address] [place] [id number] Attending Physician: Steph Alfredo Admitting Physician: Steph Alfredo Referring Physician: Admtr ArNandini Encounter Type: Triage Allergies, Adverse Reactions, Alerts Substance Criticality Severity Reaction Reaction Severity Status ampicillin hives Active ibuprofen blurred vision Activ e Immunizations Given and Recorded Vaccine Date Status Refusal Reason SARS-CoV-2(COVID-19)mRNA-LNP vac([id number]) 11/16/23 Recorded SARS-CoV-2(COVID-19)mRNA-LNP vac([id number]) 12/15/22 Recorded influenza virus vaccine, inactivated 11/10/23 [...] Recorded pneumococcal 20-valent conjugate vaccine 09/14/22 Given [id number] 12y+ bivalent booster vax 06/15/22 Given [id number] 12y+ bivalent booster vax 11/30/21 Recorded SARS-CoV-2 mRNA ([id number]-mhnja) vax 09/12/21 Recorded SARS-CoV-2 (COVID-19) mRNA BNT-162b2 [...] 11/03/10 Recorded tetanus-diphtheria toxoids (Td) 05/05/00 Recorded Medications acetaminophen 325 mg oral tablet 650 mg, 2, tablet, By Mouth, Every 6 hours, Refills 0, Maintenance, 09/18/16 7:28:18 AM EDT Start Date: 09/18/16 Status: Ordered Repeat number: 1 amiodarone 200 mg oral tablet TAKE 2 TABLETS BY MOUTH TWICE A DAY X7 DAYS. 2 TABS DAILY X5 DAYS. THEN 1 TAB DAILY Start Date: 01/10/24 Status: Ordered Repeat number: 1 atorvastatin 20 mg oral tablet 1 tablet, By Mouth, Daily at bedtime, # 90 tablet, 1 Refills, Maintenance, 07/09/24 7:10:00 AM EDT, [facility], 160, cm, 06/29/24 9:30:00 EDT, Height, 95, kg, 12/21/23 10:26:00 EDT,Dry Weight Start Date: 07/09/24 Status: Ordered Quantity: 90.0 Unit: tablet Repeat number: 2 cyclobenzaprine 5 mg oral tablet 1 tablet = 5 mg, By Mouth, Daily at bedtime, prn pain, # 60 tablet, 0 Refills, Maintenance, 09/30/2410:55:00 AM EDT, [facility]/pharmacy #[id number], Partial fill upon patient request if the prescription is for aschedule II opioid drug., 162, cm, 10/01/23 11:29:00 EDT, Height Start Date: 10/01/23 Status: Ordered Quantity: 60.0 Unit: tablet Repeat number: 1 Diabetic shoes Dx E11.9/E11.4 Diabetic shoes Dx E11.9/E11.4, See Instructions, # 2 each, Refills 0, Tot. Refills 0, Maintenance, Wear as directed- 1 pair, 08/10/23 9:30:00 AM EDT, Supply Start Date: 08/10/23 Status: Ordered Quantity: 2.0 Unit: each Repeat number: 1 Indications: Type 2 diabetes mellitus without complications; Type 2 diabetes mellitus with diabeticneuropathy, unspecified; diclofenac 1% topical gel = 2 Gm, Topically, 3 times a day, prn joint pain, # 540 Gm, 3 Refills, Maintenance, 04/19/22 1:09:00PM EST, Gel, [facility], Partial fill upon patient request if the prescription is for a schedule II opioid drug., 160, cm, 04/09/22 7:46:00 EST, Height Start Date: 04/19/22 Status: Ordered Quantity: 540.0 Unit: g Repeat number: 4 Fish Oil 1000 mg oral capsule 1 capsule = 1,000 mg, By Mouth, Daily, 0 Refills, Maintenance, 04/14/22 6:06:00 PM EST, Partial fillupon patient request if the prescription is for a schedule II opioid drug. Start Date: 04/14/22 Status: Ordered Repeat number: 1 flecainide 50 mg oral tablet 100 mg, 2, tablet, DIRECTED ORALLY TWICE A DAY START TAKING 3 DAYS BEFORE CARDIOVERSION. 30 DAYS Start Date: 12/21/23 Status: Ordered Repeat number: 1 flecainide 50 mg oral tablet DIRECTED ORALLY TWICE A DAY START TAKING 3 DAYS BEFORE CARDIOVERSION. 30 DAYS Start Date: 12/21/23 Status: Ordered Repeat number: 1 Freestyle Lite Test Strips Freestyle Lite Test Strips, See Instructions, # 200 each, Refills 1, Tot. Refills 1, Maintenance, Use to test blood sugars daily. DX E11.9, 08/31/23 3:27:00 PM EDT, Supply, 162, cm, 08/31/23 14:50:00 EDT, Height Start Date: 08/31/23 Status: Ordered Quantity: 200.0 Unit: each Repeat number: 2 furosemide 40 mg oral tablet 40 mg, 1, tablet, By Mouth, Daily, # 30 tablet, Refills 0, Maintenance, 12/21/23 7:29:00 AM EDT, Partial fill upon patient request if the prescription is for a schedule II opioid drug. Start Date: 12/21/23 Status: Ordered Quantity: 30.0 Unit: tablet Repeat number: 1 losartan 50 mg oral tablet 1 tablet = 50 mg, By Mouth, Daily, # 90 tablet, 3 Refills, Maintenance, 12/21/23 7:30:00 AM EDT, Tablet, [facility], Partial fill upon patient request if the prescription is for a schedule II opioid drug., 160, cm, 12/21/23 7:00:00 EDT, Height, 96.3, kg, 12/20/23 2:14:00 EDT, DryWeight Start Date: 12/21/23 Status: Ordered Quantity: 90.0 Unit: tablet Repeat number: 4 Lyrica 50 mg oral capsule 1 capsule = 50 mg, By Mouth, 3 times a day, # 42 capsule, 0 Refills, Maintenance, 06/18/24 3:58:00 PM EDT, [facility]/pharmacy #202, new instructions, 160, cm, 05/23/24 9:49:00 EDT, Height, 95, kg, 12/20/2409:26:00 EDT, Dry Weight Start Date: 06/18/24 Stop Date: 07/02/24 Status: Ordered Quantity: 42.0 Unit: capsule Repeat number: 1 Indications: Type 2 diabetes mellitus with diabetic neuropathy, unspecified; magnesium oxide 400 mg oral tablet 1 tablet = 400 mg, By Mouth, 2 times a day, # 100 tablet, 0 Refills, Maintenance, 12/21/23 8:30:00 AM EDT, Tablet, [facility]/pharmacy #202, Partial fill upon patient request if the prescription is for a schedule II opioid drug., 160, cm, 12/21/23 7:00:00 EDT, Height, 96.3, kg, 12/20/23 2:14:00 EDT, Dry Weight Start Date: 12/21/23 Status: Ordered Quantity: 100.0 Unit: tablet Repeat number: 1 Metamucil 3.4 gm/5.2 gm oral powder for reconstitution = 1.7 Gm, By Mouth, 3 times a day, dissolve in 8 oz of fluid, # 153 Gm, 2 Refills, Maintenance, 09/13/23 10:04:00 AM EDT, REC Powder, [facility]/pharmacy #2024, Partial fill upon patient request if the prescription is for a schedule II opioid drug., 162, cm, 08/31/23 14:50:00 EDT, Height Start Date: 09/13/23 Status: Ordered Quantity: 153.0 Unit: g Repeat number: 3 metoprolol 25 mg oral tablet 25 mg, By Mouth, 2 times a day, Refill per PCP or Cardiology, # 60 tablet, Refills 0, Tot. Refills 0, Maintenance, 11/12/23 1:05:00 PM EDT, Route to Pharmacy Electronically, [facility], Partial fill upon patient request if the prescription is for a schedule II opioid drug., 163, cm, 11/12/23 8:09:00 EDT, Height, 100.8, kg, 11/10/23 5:07:00 EDT, Dry Weight Start Date: 11/12/23 Status: Ordered Quantity: 60.0 Unit: tablet Repeat number: 1 nystatin topical 127275 u/gm cream 1 application, Topically, 2 times a day, # 90 Gm, 1 Refills, Maintenance, 06/22/23 12:10:00 AM EDT, Cream, [facility]/pharmacy #2024, Partial fill upon patient request if the prescription is for a schedule IIopioid drug., 1 application Topically 2 times a day, 162, cm, 06/20/23 9:52:00 EDT, Height Start Date: 06/22/23 Status: Ordered Quantity: 90.0 Unit: g Repeat number: 2 omeprazole 20 mg oral enteric coated capsule 1 capsule = 20 mg, By Mouth, Daily, # 90 capsule, 1 Refills, Maintenance, 04/18/24 10:38:00 AM EST, EC Capsule, [facility], Partial fill upon patient request if the prescription is for a schedule II opioid drug., 160, cm, 03/30/24 9:53:00 EST, Height, 95, kg, 12/21/23 10:26:00 EDT, Dry Weight Start Date: 04/18/24 Status: Ordered Quantity: 90.0 Unit: capsule Repeat number: 2 Oyster Shell Calcium with Vitamin D = 600 mg, By Mouth, 2 times a day, 0 Refills, Maintenance, 05/23/13 2:35:40 PM EDT Start Date: 05/23/13 Status: Ordered Repeat number: 1 phyical therapy phyical therapy, See Instructions, # 1 each, Refills 0, Tot. Refills 0, Maintenance, 2 times/week for 6 weeks dx: lumbar radiculitis, 09/12/19 2:36:00 PM EDT, Supply Start Date: 09/12/19 Status: Ordered Quantity: 1.0 Unit: each Repeat number: 1 Synthroid 137 mcg (0.137 mg) oral tablet 1 tablet = 137 mcg, By Mouth, Daily, # 90 tablet, 0 Refills, Maintenance, 03/01/24 7:13:00 PM EST, Tablet, [facility]/pharmacy #[id number], Partial fill upon patient request if the prescription is for a schedule IIopioid drug., 160, cm, 01/10/24 8:24:00 EST, Height, 95, kg, 12/21/23 10:26:00 EDT, Dry Weight Start Date: 03/01/24 Status: Ordered Quantity: 90.0 Unit: tablet Repeat number: 1 Vitamin B12 By Mouth, Daily, 0 Refills, Maintenance, 06/15/22 7:17:00 AM EDT, Partial fill upon patient request if the prescription is for a schedule II opioid drug. Start Date: 06/15/22 Status: Ordered Repeat number: 1 Xarelto 20 mg oral tablet 1 tablet = 20 mg, By Mouth, Daily before dinner, # 90 tablet, 3 Refills, Maintenance, 07/27/24 9:29:00 AM EDT, [id number], 160, cm, 07/09/24 14:18:00 EDT, Height, 95, kg, 12/21/23 10:26:00 EDT, Dry Weight Start Date: 07/27/24 Status: Ordered Quantity: 90.0 Unit: tablet Repeat number: 4 Problem List Condition Confirmation Course Effective Dates Status Health Status Informant Encounter for completion of form with patient [...] Active Hypomagnesemia Confirmed Active Hypothyroidism Confirmed Active Unstable balance Confirmed Active Rotator cuff tendinitis Confirmed Active Musculoskeletal strain Confirmed Active Intertrigo Confirmed Active Lactose intolerance Confirmed Active Lumbar strain Confirmed Active Lumbar radiculitis Confirmed Active Pulmonary hypertension, mild Confirmed Active Polyarthralgia Confirmed Active Diabetic neuropathy Confirmed Active Obstructive sleep apnea, adult Confirmed Active Obstructive sleep apnea Confirmed Active Advance care planning Confirmed Active Medicare annual wellness visit, subsequent Confirmed Active Psoriasis Confirmed Active Renal insufficiency Confirmed Active Severe obesity (BMI 35.0-39.9) with comorbidity Confirmed Active Situational stress Confirmed Active Tinea pedis of both feet Confirmed Active Treatment-emergent central sleep apnea Confirmed Active Type 2 diabetes mellitus Confirmed Active Gastroenteritis due to norovirus Confirmed Active Low vitamin D level Confirmed Active Vitamin D deficiency Confirmed Active Social History Social History Type Response Smoking Status Former smoker entered on: 02/19/13 Sex Sex Representation Female (finding) Patient Care team information Care Team Personnel Name: Tracey Crouch MD Position: S Physician - Primary Care Member Role: PCP Address: [address] [facility] [facility], [address] [facility] [place] [address]- Telecom: Name: Mary Cao RN Position: [facility] SN RN Member Role: Primary Care Nurse Name: Tiffanie Del Toro RN Position: [facility] MR W/ Merge Member Role: Primary Care Nurse Name: Sherrie Zepeda RN Position: [facility] RN Member Role: Primary Care Nurse Name: Yee Martin RN Position: [facility] RN Member Role: Primary Care Nurse Name: Maria Teresa SHORE, Xena Vee Position: [facility] PCO Associate Professional Member Role: Lifetime Consulting Provider Address: [address] [facility] [place] [address]- Telecom: Name: Bijan Calderón Position: [facility] Outreach Member Role: Lifetime Consulting Physician Name: Blaise Gibson RN Position: [facility] ED RN W/OE and Tasks Member Role: Primary Care Nurse Name: Abbi Montgomery RN Position: [facility] RN Member Role: Primary Care Nurse Name: Trace Hsu RN Position: [facility] RN Member Role: Primary Care Nurse Care Team Related Persons Name: JESSIKA SHIN Insurance Providers Guarantor name: JAYME SHIN Health Plan Information #: 1 Payer: MEDICARE B Payer Identifier: Member Number: [id number] Group Number: Subscriber Identifier: [id number] Relationship to Subscriber: self Coverage Type: NA Coverage Verification Date: Telecom: Address: Health Plan Information #: 2 Payer: MEDEX SECONDARY ONLY Payer Identifier: Member Number: [id number] Group Number: Subscriber Identifier: [id number] Relationship to Subscriber: self Coverage Type: Medicare Other Coverage Verification Date: Telecom: Address:
[2024-07-30 17:29] LABS: C Reactive Protein 0.35 mg/dL (< or = 0.50); Uric Acid 10.3 mg/dL (2.4-5.7)
[2024-07-30 17:59] LABS: Erythrocyte Sedimentation Rate 32 MM/HR (0-20)
== END 2024-07-30 15:36 | disposition home or self-care (01) ==
LOC: HO.LAB 15:35
PROVIDERS: PCP Internal Medicine; Visit Provider Podiatrist
DX: M10.071 Idiopathic gout, right ankle and foot (principal)
CPT/HCPCS: 36415; 84550; 85652; 86140